=== PATIENT | female | born 1960 | race Caucasian/White ===

== ENCOUNTER 2020-12-29 06:08 | Outpatient (REF) | payer BC, SELFPAY ==
[2020-12-29 11:15] LABS: MANUAL DIFF FLAG NO
[2020-12-29 11:32] LABS: Basophils Percent Auto 0.5 % (0-2); Eosinophils Absolute Auto 0.1 X10*3/uL (0.0-0.4); Eosinophils Percent Auto 2.2 % (0-4); Hematocrit 40.9 % (37-47); Hemoglobin 13.6 g/dl (12.0-16.0); Imm Gran Abs Auto 0.03 X10*3/uL (0.00-0.03); Imm Gran Pct Auto 0.5 % (0.0-0.4); Lymphocytes Absolute Auto 2.5 X10*3/uL (1.2-4.9); Lymphocytes Percent Auto 38.5 % (20-40); Mean Corpuscular HGB Conc 33.3 g/dl (31.0-35.0); Mean Corpuscular Volume 96.2 fL (80-98); Mean Platelet Volume 10.8 fL (9.4-12.3); Monocytes Absolute Auto 0.6 X10*3/uL (0.1-1.2); Monocytes Percent Auto 8.9 % (2-11); Neutrophils Absolute Auto 3.2 X10*3/uL (2.0-8.3); Neutrophils Percent Auto 49.4 % (45-73); Platelet Count 249 X10*3/uL (160-400); Red Blood Count 4.25 X10*6/uL (4.20-5.50); Red Cell Distribution Width 12.7 % (11.0-16.0); White Blood Count 6.4 X10*3/uL (4.8-10.8)
[2020-12-29 11:33] LABS: Estimated Average Glucose 128 mg/dL; Hemoglobin A1c % 6.1 %
[2020-12-29 11:43] LABS: Alanine Aminotransferase 22 U/L (0-31); Albumin Level 4.4 g/dL (3.5-5.0); Alkaline Phosphatase 74 U/L (39-117); Anion Gap 12 (12-20); Aspartate Amino Transferase 16 U/L (5-31); Bilirubin Total 0.7 mg/dL (0.0-1.0); Blood Urea Nitrogen 17 mg/dL (9-16); Calcium 9.1 mg/dL (8.4-10.2); Carbon Dioxide 27 mmol/L (22-29); Chloride 106 mmol/L (96-108); Cholesterol 221 mg/dL; Estimated Glomerular Filt Rate > 60; Glucose Fasting 169 mg/dL (60-99); HDL Cholesterol 72 mg/dL; LDL Cholesterol Calculated 134 mg/dl; Potassium 4.5 mmol/L (3.3-5.1); Sodium 140 mmol/L (135-145); Total Protein 6.8 g/dL (6.5-8.0); Triglycerides 77 mg/dL
== END 2020-12-29 06:09 | disposition home or self-care (01) ==
LOC: HO.HMGCLDS 06:08
PROVIDERS: PCP Internal Medicine; Visit Provider Internal Medicine
DX: I10 Essential (primary) hypertension (principal); E78.9 Disorder of lipoprotein metabolism, unspecified; R73.01 Impaired fasting glucose; R49.0 Dysphonia; Z72.0 Tobacco use
CPT/HCPCS: 36415; 80053; 80061; 83036; 85025

== ENCOUNTER 2021-05-16 18:58 | Emergency (ER) | payer BC, SELFPAY ==
--- NOTE | ~2021-05-16 | XR_ITS ---
EXAMINATION: XR CHEST CLINICAL INFORMATION: Cough COMPARISON: None TECHNIQUE: Frontal view of the chest was obtained. FINDINGS: Lungs are mildly hyperexpanded. No consolidation, pneumothorax, or pleural effusion. Cardiac and mediastinal contours are normal. Osseous structures are unremarkable. Mild degenerative spondylosis in the thoracic spine. XR/XR chest 1V IMPRESSION: No acute pulmonary findings.
[2021-05-16 19:01] VITALS: BP 167/88; PULSE 95; RESP 18; TEMP 36.9; O2SAT 94; BMI 27.4
[2021-05-16 20:59] LABS: IDNOW Serial# 08D9AD1C
[2021-05-16 21:17] LABS: COVID-19 Test Negative (Negative)
[2021-05-16 21:45] VITALS: O2SAT 96
[2021-05-16 21:51] VITALS: BP 139/91; PULSE 85; RESP 18; TEMP 36.9; O2SAT 96
--- NOTE | 2021-05-16 22:43 | ED_ITS ---
HPI - URI/Sore Throat General Chief Complaint: Upper Respiratory Symptoms Stated Complaint: cough Time Seen by Provider: 05/16/21 22:43 Source: patient Mode of arrival: ambulatory History of Present Illness HPI Narrative: 60-year-old female, every day smoker, history of hypertension comes in with complaints of ongoing cough with associated pain on cough at the anterior chest wall but denies any fevers, chills, GI or symptoms. Patient states that she was seen at urgent care approximately 5 days ago and was given a Z-Long and inhaler at that time. Patient states that she has ?almost completed the Z-Long? but has not use the inhaler at all. Related Data Home Medications Medication Instructions Recorded Confirmed lorazepam 1 mg tablet 1 mg PO DAILY PRN 04/13/21 04/13/21 Previous Rx's Medication Instructions Recorded cetirizine 10 mg tablet 10 mg PO DAILY PRN #30 tab 02/02/21 simvastatin 20 mg tablet 20 mg PO DAILY 90 Days #90 tab 02/19/21 cholecalciferol (vitamin D3) 50 50 mcg PO DAILY 90 Days #90 cap 04/13/21 mcg (2,000 unit) capsule lisinopril 20 mg tablet 20 mg PO DAILY #90 tab 04/30/21 albuterol sulfate 90 mcg/actuation 1 inh INHALATION QID PRN #6.7 g 05/13/21 aerosol inhaler albuterol sulfate 90 mcg/actuation 1 inh INHALATION QID PRN #6.7 g 05/13/21 aerosol inhaler azithromycin 250 mg tablet See Rx Instructions PO .COMPLEX #6 05/13/21 tab azithromycin 250 mg tablet See Rx Instructions PO .COMPLEX #6 05/13/21 tab Allergies Allergy/AdvReac Type Severity Reaction Status Date / Time No Known Allergies Allergy Verified 05/13/21 08:16 Review of Systems Review of Systems: Pertinent positives and negatives as stated in HPI and 10 point review of systems is otherwise negative. [facility] Past Medical History Source: nursing notes reviewed Surgical History History of section History of foot surgery History of hysterectomy Family History Family History Father HTN (hypertension) Mother HTN (hypertension) Diabetes mellitus Depression Daughter HTN (hypertension) Son No problems noted. Sister No problems noted. Sister No problems noted. Sister No problems noted. Maternal Grandmother Unknown family medical history Maternal Grandfather Unknown family medical history Paternal Grandmother Unknown family medical history Other Substance use disorder Social History Social History Housing: House Patient Tobacco Use Status: Current someday Tobacco user Tobacco use type: Cigarette (1 pack per week ) Years Smoked: 30 Use of substances other than those prescribed or required for medical reasons: No Advance Directives: No Advance Directives Information Provided: No Patient : No Current occupational status: employed Physical Exam Vital Signs: Vital Signs: Last Vital Signs Temp 98.4 F 05/16/21 21:51 Pulse 85 05/16/21 21:51 Resp 18 05/16/21 21:51 BP 139/91 H 05/16/21 21:51 Pulse Ox 96 05/16/21 21:51 Body Mass Index 27.4 VITAL SIGNS: Reviewed. GENERAL: Well developed, well nourished, in no acute distress. HEAD: Normocephalic/atraumatic, EYES: PERRLA, EOMI EARS: Ext canals without abnormality, TMs non-bulging and non-erythematous NOSE: Nares patent bilateral OROPHARYNX: no oral lesions noted, posterior pharynx clear and non-erythematous without noted tonsillar enlargement/erythema/exudates NECK: Supple, no adenopathy LUNGS: Scattered rhonchi that clear with cough, good inspiratory effort and no expiratory wheeze noted. SpO2<96> CARDIOVASCULAR: Regular rate and rhythm without noted murmurs ABDOMEN: Soft, non-tender, non-distended with bowel sounds. SKIN: Inspection of the skin reveals no rashes NEUROLOGIC: Alert and oriented x 4. Strength and sensation to light touch were grossly intact x 4. Course Course Course Narrative: 60-year-old female with history and clinical presentation consistent with viral cough, bronchitis and review of all investigations negative for acute findings. All results discussed with patient at bedside as well as different interventions at home that she can implement. MDM - URI/Sore Throat Lab Data Labs: Lab Results 05/16/21 Range/Units 20:47 COVID-19 (ROGELIO) Negative (Negative) COVID-19 Clin Com See Note Discharge Plan Discharge Clinical Impression: Cough, Bronchitis Patient Disposition: Home, Self-Care Instructions: Acute Bronchitis (ED) Additional Instructions: 1. Resume all home medications as prescribed. 2. Recommend using your albuterol inhaler as prescribed for symptom relief. 3. Recommend increasing fluid hydration especially with water as well as using an [id number] guaifenesin based cough medication for additional symptom relief. 4. Recommend using a cool mist humidifier at the bedside for additional symptom relief. 5. Continue with smoking cessation and follow-up with your primary care provider in the next 2-3 days for re-evaluation and further outpatient management. 6. Also recommend pursuing repeat COVID-19 testing in 3-4 days. Return to the ER for acute worsening of your symptoms. Prescriptions: No Action simvastatin 20 mg tablet 20 mg PO DAILY 90 Days Qty: 90 RF: 0 lisinopril 20 mg tablet 20 mg PO DAILY Qty: 90 RF: 0 cetirizine 10 mg tablet 10 mg PO DAILY PRN (Reason: allergy symptoms) Qty: 30 RF: 0 lorazepam 1 mg tablet 1 mg PO DAILY PRNRF: 0 cholecalciferol (vitamin D3) 50 mcg (2,000 unit) capsule 50 mcg PO DAILY 90 Days Qty: 90 RF: 3 azithromycin 250 mg tablet See Rx Instructions PO .COMPLEX Qty: 6 RF: 0 albuterol sulfate 90 mcg/actuation HFA aerosol inhaler 1 inh inhalation QID PRN (Reason: shortness of breath or wheezing) Qty: 6.7 RF: 1 azithromycin 250 mg tablet See Rx Instructions PO .COMPLEX Qty: 6 RF: 0 albuterol sulfate 90 mcg/actuation HFA aerosol inhaler 1 inh inhalation QID PRN (Reason: shortness of breath or wheezing) Qty: 6.7 RF: 1 Referrals: Gemini Canas MD [Primary Care Provider] - 2 days
== END 2021-05-16 23:04 | disposition home or self-care (01) ==
PROVIDERS: Emergency Provider Student in an Organized Health Care Education/Training Program; PCP Internal Medicine
DX: J40 Bronchitis, not specified as acute or chronic (principal); R05 Cough; F17.210 Nicotine dependence, cigarettes, uncomplicated; I10 Essential (primary) hypertension; Z20.822 Contact with and (suspected) exposure to COVID-19; Z71.6 Tobacco abuse counseling; Z79.899 Other long term (current) drug therapy
CPT/HCPCS: 36415; 71045; 87635; 99284; 99285

== ENCOUNTER 2021-08-11 06:03 | Outpatient (REF) | payer BC, SELFPAY ==
[2021-08-11 12:05] LABS: Alanine Aminotransferase 20 U/L (0-31); Albumin Level 4.1 g/dL (3.5-5.0); Alkaline Phosphatase 70 U/L (39-117); Anion Gap 11 (12-20); Aspartate Amino Transferase 16 U/L (5-31); Bilirubin Total 0.3 mg/dL (0.0-1.0); Blood Urea Nitrogen 16 mg/dL (9-16); Carbon Dioxide 23 mmol/L (22-29); Chloride 107 mmol/L (96-108); Estimated Glomerular Filt Rate > 60; Glucose Random 180 mg/dL (60-115); Potassium 4.3 mmol/L (3.3-5.1); Sodium 137 mmol/L (135-145); Total Protein 6.3 g/dL (6.5-8.0)
[2021-08-17 15:11] LABS: Vitamin D 25-OH, D2 <4 ng/mL; Vitamin D 25-OH, D3 23 ng/mL; Vitamin D 25-OH, Total 23 ng/mL (30-100)
== END 2021-08-11 06:04 | disposition home or self-care (01) ==
LOC: HO.HMGCLDS 06:03
PROVIDERS: PCP Internal Medicine; Visit Provider Internal Medicine
DX: E55.9 Vitamin D deficiency, unspecified (principal); E78.9 Disorder of lipoprotein metabolism, unspecified; I10 Essential (primary) hypertension; Z72.0 Tobacco use
CPT/HCPCS: 36415; 80053; 82306

== ENCOUNTER 2021-12-28 06:34 | Outpatient (REF) | payer BC, SELFPAY ==
[2021-12-28 12:05] LABS: Estimated Average Glucose 134 mg/dL; Hemoglobin A1c % 6.3 %
[2021-12-28 12:16] LABS: Alanine Aminotransferase 25 U/L (0-31); Albumin Level 4.2 g/dL (3.5-5.0); Alkaline Phosphatase 73 U/L (39-117); Anion Gap 14 (12-20); Aspartate Amino Transferase 20 U/L (5-31); Bilirubin Total 0.2 mg/dL (0.0-1.0); Blood Urea Nitrogen 11 mg/dL (9-16); Calcium 9.5 mg/dL (8.4-10.2); Carbon Dioxide 23 mmol/L (22-29); Chloride 108 mmol/L (96-108); Estimated Glomerular Filt Rate > 60; Glucose Fasting 152 mg/dL (60-99); Potassium 4.5 mmol/L (3.3-5.1); Sodium 140 mmol/L (135-145); Total Protein 6.7 g/dL (6.5-8.0)
[2021-12-28 12:31] LABS: Creatinine Urine 94.95 mg/dL; Microalbum/Creatinine Ratio Ur 10.5 ug/mg cr
[2022-01-01 14:22] LABS: Vitamin D 25-OH, D2 <4 ng/mL; Vitamin D 25-OH, D3 25 ng/mL; Vitamin D 25-OH, Total 25 ng/mL (30-100)
== END 2021-12-28 06:35 | disposition home or self-care (01) ==
LOC: HO.HMGCLDS 06:34
PROVIDERS: Visit Provider Internal Medicine
DX: E11.9 Type 2 diabetes mellitus without complications (principal); E78.9 Disorder of lipoprotein metabolism, unspecified; I10 Essential (primary) hypertension
CPT/HCPCS: 36415; 80053; 82043; 82306; 83036

== ENCOUNTER → 2022-01-24 09:21 | Outpatient (BNVA) | payer BC, SELFPAY | PROVIDERS: PCP Internal Medicine; Visit Provider Advanced Practice Midwife | DX: Z13.89 Encounter for screening for other disorder (principal) ==

== ENCOUNTER 2022-05-03 06:03 | Outpatient (REF) | payer BC, SELFPAY ==
[2022-05-03 11:36] LABS: Estimated Average Glucose 128 mg/dL; Hemoglobin A1c % 6.1 %
[2022-05-03 11:41] LABS: Alanine Aminotransferase 24 U/L (0-31); Albumin Level 4.3 g/dL (3.5-5.0); Alkaline Phosphatase 77 U/L (39-117); Anion Gap 12 (12-20); Aspartate Amino Transferase 17 U/L (5-31); Bilirubin Total 0.6 mg/dL (0.0-1.0); Blood Urea Nitrogen 16 mg/dL (9-16); Calcium 9.5 mg/dL (8.4-10.2); Carbon Dioxide 26 mmol/L (22-29); Chloride 105 mmol/L (96-108); Cholesterol 209 mg/dL; Estimated Glomerular Filt Rate > 60; Glucose Fasting 164 mg/dL (60-99); HDL Cholesterol 69 mg/dL; LDL Cholesterol Calculated 126 mg/dl; Sodium 138 mmol/L (135-145); Total Protein 6.9 g/dL (6.5-8.0); Triglycerides 74 mg/dL
== END 2022-05-03 06:04 | disposition home or self-care (01) ==
LOC: HO.HMGCLDS 06:03
PROVIDERS: Visit Provider Internal Medicine
DX: I10 Essential (primary) hypertension (principal); E78.9 Disorder of lipoprotein metabolism, unspecified; E11.9 Type 2 diabetes mellitus without complications; R49.0 Dysphonia; D12.6 Benign neoplasm of colon, unspecified
CPT/HCPCS: 36415; 80053; 80061; 83036

== ENCOUNTER 2022-09-01 06:01 | Outpatient (REF) | payer BC, SELFPAY ==
[2022-09-01 12:02] LABS: TSH reflex Free T4 0.88 uIU/mL (0.32-4.0)
[2022-09-01 12:14] LABS: Alanine Aminotransferase 26 U/L (0-31); Albumin Level 4.3 g/dL (3.5-5.0); Alkaline Phosphatase 80 U/L (39-117); Anion Gap 14 (12-20); Aspartate Amino Transferase 19 U/L (5-31); Bilirubin Total 0.7 mg/dL (0.0-1.0); Blood Urea Nitrogen 19 mg/dL (9-16); Calcium 9.1 mg/dL (8.4-10.2); Carbon Dioxide 24 mmol/L (22-29); Chloride 105 mmol/L (96-108); Cholesterol 196 mg/dL; Estimated Glomerular Filt Rate > 60; Glucose Fasting 155 mg/dL (60-99); HDL Cholesterol 63 mg/dL; LDL Cholesterol Calculated 115 mg/dl; Potassium 3.9 mmol/L (3.3-5.1); Sodium 139 mmol/L (135-145); Total Protein 6.8 g/dL (6.5-8.0); Triglycerides 92 mg/dL
[2022-09-01 12:18] LABS: Creatinine Urine 111.11 mg/dL; Microalbum/Creatinine Ratio Ur 8.1 ug/mg cr
[2022-09-01 12:29] LABS: Estimated Average Glucose 134 mg/dL; Hemoglobin A1c % 6.3 %
== END 2022-09-01 06:02 | disposition home or self-care (01) ==
LOC: HO.HMGCLDS 06:01
PROVIDERS: PCP Internal Medicine; Visit Provider Internal Medicine
DX: E11.9 Type 2 diabetes mellitus without complications (principal); E55.9 Vitamin D deficiency, unspecified; E78.9 Disorder of lipoprotein metabolism, unspecified; F41.1 Generalized anxiety disorder; I10 Essential (primary) hypertension; R49.0 Dysphonia; Z72.0 Tobacco use
CPT/HCPCS: 36415; 80053; 80061; 82043; 83036; 84443

== ENCOUNTER 2022-11-07 08:10 | Outpatient (REF) | payer BC, SELFPAY ==
--- NOTE | ~2022-11-07 | MM_ITS ---
EXAMINATION: MM SCREENING DIGITAL BREAST TOMOSYNTHESIS, BILATERAL CLINICAL INFORMATION: Screening. Asymptomatic. The lifetime risk of breast cancer based on the Tyrer-Cuzick Model is 4%. COMPARISON: Mammography: 07/22/2019; outside mammography 08/31/2017, 08/22/2016, 08/08/2016 ([facility]) TECHNIQUE: Digital breast tomosynthesis is performed in both the craniocaudal and mediolateral oblique views along with computer-aided detection (CAD). Synthesized 2D images are generated from the tomosynthesis. FINDINGS: The breasts are heterogeneously dense, which may obscure small masses (ACR BI-RADS breast composition Category c). Breast tissue composition borders on average fibroglandular. Denser breast tissue composition is in the upper outer quadrant similar to prior studies. No developing density or architectural abnormality. No abnormal calcifications. The axilla and skin contours are unremarkable. No significant changes. MM/MM tomosynthesis screening BI IMPRESSION: No mammographic evidence of malignancy. ASSESSMENT: BI-RADS 1: Negative RECOMMENDATION: Routine annual mammography screening. This patient's information was entered into a reminder system with a target due date for their next mammogram.
== END 2022-11-07 08:11 | disposition home or self-care (01) ==
LOC: HO.MAMMO 08:10
PROVIDERS: PCP Internal Medicine; Visit Provider Internal Medicine
DX: Z12.31 Encounter for screening mammogram for malignant neoplasm of breast (principal)
CPT/HCPCS: 77063; 77067

== ENCOUNTER 2023-01-30 06:01 | Outpatient (REF) | payer BC, SELFPAY ==
[2023-01-30 11:32] LABS: MANUAL DIFF FLAG NO
[2023-01-30 11:43] LABS: Basophils Percent Auto 0.4 % (0-2); Eosinophils Absolute Auto 0.2 X10*3/uL (0.0-0.4); Eosinophils Percent Auto 2.9 % (0-4); Hemoglobin 13.5 g/dl (12.0-16.0); Imm Gran Abs Auto 0.02 X10*3/uL (0.00-0.03); Imm Gran Pct Auto 0.4 % (0.0-0.4); Lymphocytes Percent Auto 36.5 % (20-40); Mean Corpuscular HGB Conc 33.8 g/dl (31.0-35.0); Mean Corpuscular Hemoglobin 31.9 pg (27.0-33.0); Mean Corpuscular Volume 94.6 fL (80.0-98.0); Mean Platelet Volume 10.3 fL (9.4-12.3); Monocytes Absolute Auto 0.4 X10*3/uL (0.1-1.2); Monocytes Percent Auto 7.4 % (2-11); Neutrophils Absolute Auto 2.9 x10*3/uL (2.0-8.3); Neutrophils Percent Auto 52.4 % (45-73); Platelet Count 229 X10*3/uL (160-400); Red Blood Count 4.23 X10*6/uL (4.20-5.50); Red Cell Distribution Width 12.5 % (11.0-16.0); White Blood Count 5.5 X10*3/uL (4.8-10.8)
[2023-01-30 12:04] LABS: Alanine Aminotransferase 20 U/L (0-31); Albumin Level 4.1 g/dL (3.5-5.0); Alkaline Phosphatase 78 U/L (39-117); Anion Gap 12 (12-20); Aspartate Amino Transferase 15 U/L (5-31); Bilirubin Total 0.8 mg/dL (0.0-1.0); Blood Urea Nitrogen 15 mg/dL (9-16); Calcium 9.1 mg/dL (8.4-10.2); Carbon Dioxide 25 mmol/L (22-29); Chloride 108 mmol/L (96-108); Cholesterol 186 mg/dL; Estimated Glomerular Filt Rate > 60; Glucose Fasting 182 mg/dL (60-99); HDL Cholesterol 64 mg/dL; LDL Cholesterol Calculated 101 mg/dl; Sodium 141 mmol/L (135-145); Total Protein 6.3 g/dL (6.5-8.0); Triglycerides 107 mg/dL
[2023-01-30 12:19] LABS: Estimated Average Glucose 143 mg/dL; Hemoglobin A1c % 6.6 %
== END 2023-01-30 06:02 | disposition home or self-care (01) ==
LOC: HO.HMGCLDS 06:01
PROVIDERS: PCP Internal Medicine; Visit Provider Internal Medicine
DX: E11.9 Type 2 diabetes mellitus without complications (principal); E78.9 Disorder of lipoprotein metabolism, unspecified; F41.1 Generalized anxiety disorder; I10 Essential (primary) hypertension; Z72.0 Tobacco use
CPT/HCPCS: 36415; 80053; 80061; 83036; 85025

== ENCOUNTER 2023-06-08 06:06 | Outpatient (REF) | payer BC, SELFPAY ==
[2023-06-08 11:56] LABS: Alanine Aminotransferase 30 U/L (0-31); Albumin Level 4.1 g/dL (3.5-5.0); Alkaline Phosphatase 79 U/L (39-117); Anion Gap 10 (12-20); Aspartate Amino Transferase 22 U/L (5-31); Bilirubin Total 0.5 mg/dL (0.0-1.0); Blood Urea Nitrogen 15 mg/dL (9-16); Calcium 9.3 mg/dL (8.4-10.2); Carbon Dioxide 26 mmol/L (22-29); Chloride 106 mmol/L (96-108); Cholesterol 198 mg/dL (<200); Estimated Glomerular Filt Rate > 60; Glucose Fasting 184 mg/dL (60-99); HDL Cholesterol 61 mg/dL (>40); LDL Cholesterol Calculated 118 mg/dL (<100); Potassium 4.3 mmol/L (3.3-5.1); Sodium 138 mmol/L (135-145); Total Protein 6.8 g/dL (6.5-8.0); Triglycerides 98 mg/dL (<150)
[2023-06-08 12:00] LABS: Estimated Average Glucose 140 mg/dL; Hemoglobin A1c % 6.5 % (<6.0)
[2023-06-08 13:41] LABS: Creatinine Urine 82.33 mg/dL; Microalbum/Creatinine Ratio Ur 7.2 ug/mg cr (<30)
== END 2023-06-08 06:07 | disposition home or self-care (01) ==
LOC: HO.HMGCLDS 06:06
PROVIDERS: PCP Internal Medicine; Visit Provider Internal Medicine
DX: E11.9 Type 2 diabetes mellitus without complications (principal); I10 Essential (primary) hypertension; E78.9 Disorder of lipoprotein metabolism, unspecified; F41.1 Generalized anxiety disorder
CPT/HCPCS: 36415; 80053; 80061; 82043; 83036

== ENCOUNTER 2023-06-09 09:24 | Outpatient (AMB) | payer BC, SELFPAY ==
[2023-06-09 09:31] VITALS: BP 120/64; PULSE 96; O2SAT 98; BMI 27.4
--- NOTE | 2023-06-09 09:31 | A.OFFPC_ITS ---
Vital Signs 06/09/23 09:31 Height 5 ft 3 in Weight 154 lb 8 oz BMI 27.4 BP 120/64 Blood Pressure Location Rt brachial Position Sitting Pulse 96 Pulse Source Pulse Oximeter Pulse Oximetry (%) 98 Oxygen Delivery Method Room Air Intake Visit Reasons: 4 month follow up Allergies No Known Allergies Allergy (Verified 06/09/23 09:33) Medication List - Last Reconciled 06/09/23 by Gemini Canas MD cholecalciferol (vitamin D3) 50 mcg PO DAILY 90 days lisinopril 20 mg PO DAILY lorazepam 1 mg PO DAILY PRN sertraline 25 mg PO DAILY simvastatin 40 mg PO DAILY 90 days Tobacco use date assessed: 06/09/23 Fall risk assessment: No Falls in past year Last assessed Fall Risk: 06/09/23 Dental Screening Dental Screen Date: 06/09/23 Did you have a dental visit in the last 12 months?: Yes Did you have a dental problem in the last 6 months where you did not have access to dental care?: No Was dental information given to patient?: No HPI 4 month follow up HPI Details patient is a 62-year-old female came in today for her regular follow-up appointment Labs done recently reviewed her hemoglobin A1c is 6.5 patient is diet-controlled diabetic. 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 She is requesting Daley is vaccine her last Tdap was in 2014 we have provided a vaccine today she is soon to be a grandmother Lipid disorder:? Patient is on simvastatin 40 mg, tolerating medication no side effects ?hypertension:? Blood pressure is stable patient is on lisinopril 20 mg daily she is tolerating medication.? Lorazepam and sertraline is thru her Pych Colonoscopy was just done, by Dr. Jones, it showed tubular adenoma next colonoscopy will be in 2024 labs to be done before next visit in 4 M,?? ? PFSH Medical History High cholesterol Hypertension Surgical History History of section History of foot surgery History of hysterectomy Family History Father HTN (hypertension) Mother HTN (hypertension) Diabetes mellitus Depression Daughter HTN (hypertension) Son No problems noted. Sister No problems noted. Sister No problems noted. Sister No problems noted. Maternal Grandmother Unknown family medical history Maternal Grandfather Unknown family medical history Paternal Grandmother Unknown family medical history Other Substance use disorder Social History Housing: House Alcohol intake: current Alcohol intake frequency: a few times a week Patient Tobacco Use Status: Current someday Tobacco user Tobacco use type: Cigarette Cigarettes Per Day: 2 Years Smoked: 30 e-Cigarette/Vaping Use: Never Used service: No Current occupational status: employed Sexual orientation: Straight/Heterosexual Gender identity: Female Cognitive needs: No Hearing needs: No Vision needs: Yes Questionnaire PHQ-9 Over the last 2 weeks, how often have you been bothered by any of the following problems? 1. Little interest or pleasure in doing things: not at all 2. Feeling down, depressed, or hopeless: not at all 3. Trouble falling or staying asleep, or sleeping too much: not at all 4. Feeling tired or having little energy: not at all 5. Poor appetite or overeating: not at all 6. Feeling bad about yourself - or that you are a failure or have let yourself or your family down: not at all 7. Trouble concentrating on things, such as reading the newspaper or watching television: not at all 8. Moving or speaking so slowly that other people could have noticed. Or the opposite - being so fidgety or restless that you have been moving around a lot more than usual: not at all 9. Thoughts that you would be better off or of hurting yourself in some way: not at all Total score: 0 Depression Screening Interpretation: Negative 25555 - PHQ-9 Billing: Yes Source: Developed by Drs. Gerald Butler, Viola Miles, Kain Funez and colleagues, with an educational martir from [employer]. Thrive Questionnaire Date Thrive assessed: 06/09/23 I am a: Patient What is your living situation today?: I have a steady place to live Within the past 12 months, did the food you bought not last and you didn't have the money to get more?: Never true Within the past 12 months, did you worry whether your food would run out before you got money to buy more?: Never true Do you have trouble paying for medicines?: No Do you have trouble getting transportation to medical appointments?: No Do you have trouble paying your heating and electricity bill?: No Do you have trouble taking care of your child, family member or friend?: No Do you have trouble with day-to-day activities such as bathing, preparing meals, shopping, managing finances, etc.?: No Are you currently unemployed and looking for a job?: No AUDIT C Alcohol Use Questionnaire (AUDIT-C) 1. How often do you have a drink containing alcohol?: Monthly or less 2. How many drinks containing alcohol do you have on a typical day when you are drinking?: 1 or 2 3. How often do you have six or more drinks on one occasion?: Never Total Score: 1 Score Reviewed/Action Taken: Yes PAMELA-7 AMB Questionnaire PAMELA-7 Date PAMELA - 7 assessed: 06/09/23 Feeling nervous, anxious, or on edge: 0 = Not at all Not being able to stop or control worryin = Not at all Worrying too much about different things: 0 = Not at all Trouble relaxin = Not at all Being so restless that it is hard to sit still: 1 = Several days Becoming easily annoyed or irritable: 0 = Not at all Feeling afraid as if something awful might happen: 0 = Not at all Total PAMELA-7 score (0-4 normal; 5-9 mild; 10-14 moderate; 15-21 severe): 1 Source: Developed by Drs. Gerald Butler, Viola Miles, Kain Funez and colleagues, with an educational martir from [employer]. PAMELA-7 Assessment Billing PAMELA-7 Assessment Tool: PAMELA-7 Assessment 68995 Review of Systems Const Denies chills and Denies fever(s) ENT Denies epistaxis and Denies nasal discharge Card Denies chest pain Resp Denies chest congestion, Denies cough and Denies hemoptysis GI Denies diarrhea and Denies nausea Skin/Breast Denies rash Neuro Reports no additional complaints Psych Reports no additional complaints Endo Reports no additional complaints Physical exam (Primary Care) Vital Signs: Last Vital Signs Pulse 96 06/09/23 09:31 BP 120/64 06/09/23 09:31 Pulse Ox 98 06/09/23 09:31 Oxygen Delivery Method Room Air 06/09/23 09:31 BMI result Body Mass Index 27.4 Tobacco/Smoking Status: Tobacco use Status Tobacco use date assessed 06/09/23 06/09/23 09:33 Patient Tobacco Use Status Current someday Tobacco 06/09/23 09:33 Tobacco use type Cigarette 06/09/23 09:33 e-Cigarette/Vaping Use Never Used 06/09/23 09:33 PHQ-9: PHQ-9 Score PHQ-9: Total score 0 06/09/23 09:54 Depression Screening Interpretation: Negative Thrive Assessment: Date of Thrive Assessment Date Thrive assessed 06/09/23 06/09/23 09:54 Const General: cooperative, comfortable and no acute distress Orientation/consciousness: patient oriented x3 HENMT Head: Yes normocephalic Eyes General: appearance normal, both eyes and all related structures Neck Neck: Yes supple Neck images: 1. Side of pain with movement of head Resp Effort & Inspection: normal respiratory effort, no cough and no stridor Cardio Rhythm: regular rhythm Heart sounds: S1 normal heart sound present and S2 normal heart sound present Skin General skin exam: turgor normal Neuro General: patient oriented x3, tone normal and moves all extremities Extrem Right lower extremity: no edema Left lower extremity: no edema Immunizations Boostrix Tdap Performing Provider: Gemini Canas MD Administered by: Kevin Hall CMA on 06/09/23 09:54 Dose Route Admin Location Lot Number Expiration Date NDC Basting Puller 0.5 mL IM Left Deltoid [id number] 07/26/25 [id number] [employer] VIS Given Date VIS Provided VIS Publication Date 06/09/23 Single Vaccine 21 Eligibility Eligibility Date Funding Source Not VFC Eligible 06/09/23 Private Assessment and Plan Assessment & Plan (1) Hypertension, essential: Code(s): I10 - Essential (primary) hypertension (2) Lipid disorder: Code(s): E78.9 - Disorder of lipoprotein metabolism, unspecified (3) Tobacco abuse: Code(s): Z72.0 - Tobacco use (4) Hoarseness of voice: Code(s): R49.0 - Dysphonia (5) Diabetes type 2, controlled: Code(s): E11.9 - Type 2 diabetes mellitus without complications Qualifiers: Diabetes mellitus complication status: without complication Diabetes mellitus airways operations specialist insulin use: without airways operations specialist use Qualified Code(s): E11.9 - Type 2 diabetes mellitus without complications (6) Anxiety, generalized: Code(s): F41.1 - Generalized anxiety disorder (7) Strain of cervical portion of left trapezius muscle: Code(s): S16.1XXA - Strain of muscle, fascia and tendon at neck level, initial encounter (8) Immunizations incomplete: Code(s): Z28.39 - Other underimmunization status Plan patient is a 62-year-old female came in today for her regular follow-up appo intment Labs done recently reviewed her hemoglobin A1c is 6.5 patient is diet-controlled diabetic. 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 She is requesting Daley is vaccine her last Tdap was in 2015 we have provided a vaccine today she is soon to be a grandmother Lipid disorder:? Patient is on simvastatin 40 mg, tolerating medication no side effects ?hypertension:? Blood pressure is stable patient is on lisinopril 20 mg daily she is tolerating medication.? Lorazepam and sertraline is thru her Py Colonoscopy was just done, by Dr. Jones, it showed tubular adenoma next colonoscopy will be in 2024 labs to be done before next visit in 4 M,?? ? Orders: Orders Comprehensive Met. Panel 4 Months E11.9 - Type 2 diabetes mellitus without complications, E78.9 - Disorder of lipoprotein metabolism, unspecified, F41.1 - Generalized anxiety disorder, I10 - Essential (primary) hypertension, R49.0 - Dysphonia, Z72.0 - Tobacco use Hemoglobin A1c 4 Months E11.9 - Type 2 diabetes mellitus without complications, E78.9 - Disorder of lipoprotein metabolism, unspecified, F41.1 - Generalized anxiety disorder, I10 - Essential (primary) hypertension, R49.0 - Dysphonia, Z72.0 - Tobacco use Microalbumin, Random (w Creat) 4 Months E11.9 - Type 2 diabetes mellitus without complications, E78.9 - Disorder of lipoprotein metabolism, unspecified, F41.1 - Generalized anxiety disorder, I10 - Essential (primary) hypertension, R49.0 - Dysphonia, Z72.0 - Tobacco use TDaP Immunization Today Z23 - Encounter for immunization Medications: Refilled cholecalciferol (vitamin D3) 50 mcg PO DAILY 90 caps 3RF 90 days E55.9 - Vitamin D deficiency, unspecified lisinopril 20 mg PO DAILY 90 tabs 1RF simvastatin 40 mg PO DAILY 90 tabs 1RF 90 days Coding Level of Care Code Est Pt Level 4 (68764) Diagnoses Hypertension, essential I10 Lipid disorder E78.9 Tobacco abuse Z72.0 Hoarseness of voice R49.0 Diabetes type 2, controlled E11.9 Diabetes mellitus complication status: without complication Diabetes mellitus airways operations specialist insulin use: without airways operations specialist use Anxiety, generalized F41.1 Strain of cervical portion of left trapezius muscle S16.1XXA Immunizations incomplete Z28.39 Additional Codes PAMELA-7 Assessment Billing - PAMELA-7 Assessment Tool: PAMELA-7 Assessment 22440 ([id number])
== END 2023-06-09 10:05 | disposition home or self-care (01) ==
PROVIDERS: Visit Provider Internal Medicine
DX: I10 Essential (primary) hypertension (principal); E11.9 Type 2 diabetes mellitus without complications; E78.9 Disorder of lipoprotein metabolism, unspecified; Z23 Encounter for immunization; Z72.0 Tobacco use; R49.0 Dysphonia; F41.1 Generalized anxiety disorder; S16.1XXA Strain of muscle, fascia and tendon at neck level, initial encounter; Z28.39 Other underimmunization status
CPT/HCPCS: 90471; 90715; 99214

== ENCOUNTER 2023-10-17 06:31 | Outpatient (REF) | payer BC, SELFPAY ==
[2023-10-17 11:37] LABS: Estimated Average Glucose 151 mg/dL; Hemoglobin A1c % 6.9 % (<6.0)
[2023-10-17 11:54] LABS: Alanine Aminotransferase 51 U/L (0-31); Albumin Level 4.1 g/dL (3.5-5.0); Alkaline Phosphatase 88 U/L (39-117); Anion Gap 10 (12-20); Aspartate Amino Transferase 26 U/L (5-31); Bilirubin Total 0.3 mg/dL (0.0-1.0); Blood Urea Nitrogen 16 mg/dL (9-16); Calcium 9.2 mg/dL (8.4-10.2); Carbon Dioxide 27 mmol/L (22-29); Chloride 106 mmol/L (96-108); Estimated Glomerular Filt Rate > 60; Glucose Random 216 mg/dL (60-115); Potassium 4.2 mmol/L (3.3-5.1); Sodium 139 mmol/L (135-145); Total Protein 6.8 g/dL (6.5-8.0)
[2023-10-17 12:09] LABS: Creatinine Urine 113.87 mg/dL; Microalbum/Creatinine Ratio Ur 7.9 ug/mg cr (<30)
== END 2023-10-17 06:32 | disposition home or self-care (01) ==
LOC: HO.HMGCLDS 06:31
PROVIDERS: PCP Internal Medicine; Visit Provider Internal Medicine
DX: I10 Essential (primary) hypertension (principal); E78.9 Disorder of lipoprotein metabolism, unspecified; F41.1 Generalized anxiety disorder; E11.9 Type 2 diabetes mellitus without complications; R49.0 Dysphonia; Z72.0 Tobacco use
CPT/HCPCS: 36415; 80053; 82043; 82570; 83036

== ENCOUNTER 2023-10-18 08:13 | Outpatient (AMB) | payer BC, SELFPAY ==
[2023-10-18 08:20] VITALS: BP 140/82; PULSE 80; O2SAT 97; BMI 26.4
--- NOTE | 2023-10-18 08:20 | MHC.PC.OV ---
Vital Signs 10/18/23 08:20 Height 5 ft 3 in Weight 149 lb BMI 26.4 BP 140/82 H Blood Pressure Location Rt brachial Position Sitting Pulse 80 Pulse Source Pulse Oximeter Pulse Oximetry (%) 97 Oxygen Delivery Method Room Air Intake Visit Reasons: 4 month fu Allergies No Known Allergies Allergy (Verified 10/18/23 08:21) Medication List - Last Reconciled 10/18/23 by Gemini Canas MD cholecalciferol (vitamin D3) 50 mcg PO DAILY 90 days lisinopril 20 mg PO DAILY lorazepam 1 mg PO DAILY PRN sertraline 25 mg PO DAILY simvastatin 40 mg PO DAILY 90 days Tobacco use date assessed: 10/18/23 Fall risk assessment: No Falls in past year Last assessed Fall Risk: 10/18/23 Dental Screening Dental Screen Date: 10/18/23 Did you have a dental visit in the last 12 months?: Yes Did you have a dental problem in the last 6 months where you did not have access to dental care?: No Was dental information given to patient?: Patient has dentist HPI 4 month fu HPI Details Patient is a 63 year-old female came in today for her regular follow-up appointment Blood pressure is elevated today at 140/82 it was within normal limit last visit, we talked about consumption of salt Patient has been adding extra salt to her diet which she will stop Labs done recently reviewed her hemoglobin A1c is 6.9 patient is diet-controlled diabetic. , she tells me that she will do a more strict diet and we will go from there She will have a repeat labs done before her next visit in February. If her hemoglobin A1c crossed 7 I will start her on medication. Patient sees a psychiatrist for management of anxiety and sertraline and lorazepam is through them. She is under a lot of stress these days because of her 's health and her son is going through divorce. Lipid disorder:? Patient is on simvastatin 40 mg, tolerating medication no side effects Colonoscopy was just done, by Dr. Jones, it showed tubular adenoma next colonoscopy will be in 2024 labs to be done before next visit in 4 M,?? ? PFSH Medical History High cholesterol Hypertension Surgical History History of hysterectomy History of section History of foot surgery Family History Father HTN (hypertension) Mother HTN (hypertension) Diabetes mellitus Depression Daughter HTN (hypertension) Son No problems noted. Sister No problems noted. Sister No problems noted. Sister No problems noted. Maternal Grandmother Unknown family medical history Maternal Grandfather Unknown family medical history Paternal Grandmother Unknown family medical history Other Substance use disorder Social History Housing: House Alcohol intake: current Alcohol intake frequency: a few times a week Patient Tobacco Use Status: Current someday Tobacco user Tobacco use type: Cigarette Cigarettes Per Day: 2 Years Smoked: 30 e-Cigarette/Vaping Use: Never Used service: No Current occupational status: employed Sexual orientation: Straight/Heterosexual Gender identity: Female Cognitive needs: No Hearing needs: No Vision needs: Yes Questionnaire PHQ-9 Over the last 2 weeks, how often have you been bothered by any of the following problems? 1. Little interest or pleasure in doing things: not at all 2. Feeling down, depressed, or hopeless: not at all 3. Trouble falling or staying asleep, or sleeping too much: not at all 4. Feeling tired or having little energy: not at all 5. Poor appetite or overeating: not at all 6. Feeling bad about yourself - or that you are a failure or have let yourself or your family down: not at all 7. Trouble concentrating on things, such as reading the newspaper or watching television: not at all 8. Moving or speaking so slowly that other people could have noticed. Or the opposite - being so fidgety or restless that you have been moving around a lot more than usual: not at all 9. Thoughts that you would be better off or of hurting yourself in some way: not at all Total score: 0 Depression Screening Interpretation: Negative Depression Screening Done: Yes 11905 - PHQ-9 Billing: Yes Source: Developed by Drs. Gerald Butler, Viola Miles, Kain Funez and colleagues, with an educational martir from [employer]. Thrive Questionnaire Date Thrive assessed: 10/18/23 I am a: Patient What is your living situation today?: I have a steady place to live Within the past 12 months, did the food you bought not last and you didn't have the money to get more?: Never true Within the past 12 months, did you worry whether your food would run out before you got money to buy more?: Never true Do you have trouble paying for medicines?: No Do you have trouble getting transportation to medical appointments?: No Do you have trouble paying your heating and electricity bill?: No Do you have trouble taking care of your child, family member or friend?: No Do you have trouble with day-to-day activities such as bathing, preparing meals, shopping, managing finances, etc.?: No Are you currently unemployed and looking for a job?: No Are you interested in more education?: No Please select the resources that you would like help with: None Currently or been in a relationship where the following occur: no concerns reported AUDIT C Alcohol Use Questionnaire (AUDIT-C) 1. How often do you have a drink containing alcohol?: Monthly or less 2. How many drinks containing alcohol do you have on a typical day when you are drinking?: 1 or 2 3. How often do you have six or more drinks on one occasion?: Never Total Score: 1 Score Reviewed/Action Taken: No PAMELA-7 AMB Questionnaire PAMELA-7 Date PAMELA - 7 assessed: 10/18/23 Feeling nervous, anxious, or on edge: 2 = More than half the days Not being able to stop or control worryin = More than half the days Worrying too much about different things: 2 = More than half the days Trouble relaxin = Not at all Being so restless that it is hard to sit still: 0 = Not at all Becoming easily annoyed or irritable: 0 = Not at all Feeling afraid as if something awful might happen: 1 = Several days Total PAMELA-7 score (0-4 normal; 5-9 mild; 10-14 moderate; 15-21 severe): 7 Source: Developed by Drs. Gerald Butler, Viola Miles, Kain Funez and colleagues, with an educational martir from [employer]. PAMELA-7 Assessment Billing PAMELA-7 Assessment Tool: PAMELA-7 Assessment 97887 Review of Systems Const Denies chills and Denies fever(s) ENT Denies epistaxis and Denies nasal discharge Card Denies chest pain Resp Denies chest congestion, Denies cough and Denies hemoptysis GI Denies diarrhea and Denies nausea Skin/Breast Denies rash Neuro Reports no additional complaints Psych Reports no additional complaints Endo Reports no additional complaints Physical exam (Primary Care) Vital Signs: Last Vital Signs Pulse 80 10/18/23 08:20 BP 140/82 H 10/18/23 08:20 Pulse Ox 97 10/18/23 08:20 Oxygen Delivery Method Room Air 10/18/23 08:20 BMI result Body Mass Index 26.4 Tobacco/Smoking Status: Tobacco use Status Tobacco use date assessed 10/18/23 10/18/23 08:22 Patient Tobacco Use Status Current someday Tobacco 10/18/23 08:22 Tobacco use type Cigarette 10/18/23 08:22 e-Cigarette/Vaping Use Never Used 10/18/23 08:22 PHQ-9: PHQ-9 Score PHQ-9: Total score 0 10/18/23 08:53 Depression Screening Interpretation: Negative Thrive Assessment: Date of Thrive Assessment Date Thrive assessed 10/18/23 10/18/23 08:49 Currently or been in a relationship where the following occur: no concerns reported Const General: cooperative, comfortable and no acute distress Orientation/consciousness: patient oriented x3 HENMT Head: Yes normocephalic Eyes General: appearance normal, both eyes and all related structures Neck Neck: Yes supple Resp Effort & Inspection: normal respiratory effort, no cough and no stridor Cardio Rhythm: regular rhythm Heart sounds: S1 normal heart sound present and S2 normal heart sound present Skin General skin exam: turgor normal Neuro General: patient oriented x3, tone normal and moves all extremities Extrem Right lower extremity: no edema Left lower extremity: no edema Assessment and Plan Assessment & Plan (1) Hypertension, essential: Code(s): I10 - Essential (primary) hypertension (2) Lipid disorder: Code(s): E78.9 - Disorder of lipoprotein metabolism, unspecified (3) Tobacco abuse: Code(s): Z72.0 - Tobacco use (4) Hoarseness of voice: Code(s): R49.0 - Dysphonia (5) Diabetes type 2, controlled: Code(s): E11.9 - Type 2 diabetes mellitus without complications Qualifiers: Diabetes mellitus complication status: without complication Diabetes mellitus nursing home admissions director insulin use: without nursing home admissions director use Qualified Code(s): E11.9 - Type 2 diabetes mellitus without complications (6) Anxiety, generalized: Code(s): F41.1 - Generalized anxiety disorder (7) Major depression, recurrent: Code(s): F33.9 - Major depressive disorder, recurrent, unspecified Qualifiers: Active/Remission status: currently active Major depression episode severity: mild Qualified Code(s): F33.0 - Major depressive disorder, recurrent, mild (8) Snoring: Code(s): R06.83 - Snoring (9) Daytime somnolence: Code(s): R40.0 - Somnolence Plan Patient is a 63 year-old female came in today for her regular follow-up appointment Blood pressure is elevated today at 140/82 it was within normal limit last visit, we talked about consumption of salt Patient has been adding extra salt to her diet which she will stop Labs done recently reviewed her hemoglobin A1c is 6.9 patient is diet-controlled diabetic. , she tells me that she will do a more strict diet and we will go from there She will have a repeat labs done before her next visit in February. If her hemoglobin A1c crossed 7 I will start her on medication. Patient sees a psychiatrist for management of anxiety and sertraline and lorazepam is through them. She is under a lot of stress these days because of her 's health and her son is going through divorce. Lipid disorder:? Patient is on simvastatin 40 mg, tolerating medication no side effects Colonoscopy was just done, by Dr. Jones, it showed tubular adenoma next colonoscopy will be in 2024 Patient have chronic hoarseness of voice most likely secondary to smoking. Complaining of daytime somnolence and also tells me that she snores at night, have ordered a home sleep study for the patient labs to be done before next visit in 4 M,?? ? Orders: Orders Hemoglobin A1c Today E11.9 - Type 2 diabetes mellitus without complications, E78.9 - Disorder of lipoprotein metabolism, unspecified, F33.9 - Major depressive disorder, recurrent, unspecified, F41.1 - Generalized anxiety disorder, I10 - Essential (primary) hypertension, R49.0 - Dysphonia, Z72.0 - Tobacco use Complete Blood Count Auto Diff Today E11.9 - Type 2 diabetes mellitus without complications, E78.9 - Disorder of lipoprotein metabolism, unspecified, F33.9 - Major depressive disorder, recurrent, unspecified, F41.1 - Generalized anxiety disorder, I10 - Essential (primary) hypertension, R49.0 - Dysphonia, Z72.0 - Tobacco use Comprehensive [place]. Panel Fast Today E11.9 - Type 2 diabetes mellitus without complications, E78.9 - Disorder of lipoprotein metabolism, unspecified, F33.9 - Major depressive disorder, recurrent, unspecified, F41.1 - Generalized anxiety disorder, I10 - Essential (primary) hypertension, R49.0 - Dysphonia, Z72.0 - Tobacco use RT home sleep study Today R06.83 - Snoring, R40.0 - Somnolence Microalbumin, Random (w Creat) Today E11.9 - Type 2 diabetes mellitus without complications, E78.9 - Disorder of lipoprotein metabolism, unspecified, F33.9 - Major depressive disorder, recurrent, unspecified, F41.1 - Generalized anxiety disorder, I10 - Essential (primary) hypertension, R49.0 - Dysphonia, Z72.0 - Tobacco use Lipid Panel Today E11.9 - Type 2 diabetes mellitus without complications, E78.9 - Disorder of lipoprotein metabolism, unspecified, F33.9 - Major depressive disorder, recurrent, unspecified, F41.1 - Generalized anxiety disorder, I10 - Essential (primary) hypertension, R49.0 - Dysphonia, Z72.0 - Tobacco use Coding Level of Care Code Est Pt Level 4 (56161) Diagnoses Hypertension, essential I10 Lipid disorder E78.9 Tobacco abuse Z72.0 Hoarseness of voice R49.0 Controlled type 2 diabetes mellitus without complication, without long-term current use of insulin E11.9 Diabetes mellitus complication status: without complication Diabetes mellitus fdc insulin use: without fdc use Anxiety, generalized F41.1 Mild episode of recurrent major depressive disorder F33.0 Active/Remission status: currently active Major depression episode severity: mild Snoring R06.83 Daytime somnolence R40.0 Additional Codes PAMELA-7 Assessment Billing - PAMELA-7 Assessment Tool: PAMELA-7 Assessment 44511 ([id number])
== END 2023-10-18 10:12 | disposition home or self-care (01) ==
PROVIDERS: PCP Internal Medicine; Visit Provider Internal Medicine
DX: I10 Essential (primary) hypertension (principal); E11.9 Type 2 diabetes mellitus without complications; F33.0 Major depressive disorder, recurrent, mild; E78.9 Disorder of lipoprotein metabolism, unspecified; Z72.0 Tobacco use; R49.0 Dysphonia; F41.1 Generalized anxiety disorder; R06.83 Snoring; R40.0 Somnolence
CPT/HCPCS: 99214

== ENCOUNTER 2023-11-13 07:41 | Outpatient (REF) | payer BC, SELFPAY | END 2023-11-13 07:42 | disposition home or self-care (01) | LOC: HO.MAMMO 07:41 | PROVIDERS: PCP Internal Medicine; Visit Provider Internal Medicine | DX: Z12.31 Encounter for screening mammogram for malignant neoplasm of breast (principal) | CPT/HCPCS: 77063; 77067 ==

== ENCOUNTER → 2023-11-13 08:00 | Outpatient (BNV) | payer BC, SELFPAY | PROVIDERS: PCP Internal Medicine; Visit Provider Radiology Diagnostic Radiology | DX: Z12.31 Encounter for screening mammogram for malignant neoplasm of breast (principal) | CPT/HCPCS: 77063; 77067 ==

== ENCOUNTER 2024-03-12 08:02 | Outpatient (AMB) | payer BC, SELFPAY ==
--- NOTE | 2024-03-12 08:15 | MHC.OFFWIV ---
Intake Vital Signs 03/12/24 08:16 Height 5 ft 3 in BP 122/66 Blood Pressure Location Rt brachial Position Sitting Pulse 76 Pulse Source Pulse Oximeter Temp 98.0 F Temp Source Oral Pulse Oximetry (%) 98 Intake Visit Reasons: EST/ left leg pain (lobby) Intake Note: pt is here for left leg pain Patient Tobacco Use Status: Current someday Tobacco user Allergies No Known Allergies Allergy (Verified 03/12/24 08:50) Medication List - Last Reconciled 03/12/24 by AYUSH Antonio cholecalciferol (vitamin D3) 50 mcg PO DAILY 90 days lisinopril 20 mg PO DAILY lorazepam 1 mg PO DAILY PRN meloxicam 15 mg PO DAILY prednisone 20 mg PO BID sertraline 25 mg PO DAILY simvastatin 40 mg PO DAILY 90 days HPI HPI Comments History of Present Illness Details Patient is a 63-year-old female in today for a sick visit. Patient reports left-sided hip pain that radiates down to her knee. Reports history of the same. Believes this was exacerbated by long car ride. Denies any trauma to the area. Denies any tingling or numbness. Has not utilized any medication today for relief. Has intermittently used Advil which gave mild relief. Will obtain x-ray in office. Patient has full range of motion. No tingling or numbness. No saddle numbness. [facility] Medical History High cholesterol Hypertension Surgical History History of hysterectomy History of section History of foot surgery Family History Father HTN (hypertension) Mother HTN (hypertension) Diabetes mellitus Depression Daughter HTN (hypertension) Son No problems noted. Sister No problems noted. Sister No problems noted. Sister No problems noted. Maternal Grandmother Unknown family medical history Maternal Grandfather Unknown family medical history Paternal Grandmother Unknown family medical history Other Substance use disorder Social History Housing: House Alcohol intake: current Alcohol intake frequency: a few times a week Patient Tobacco Use Status: Current someday Tobacco user Tobacco use type: Cigarette Cigarettes Per Day: 2 Years Smoked: 30 e-Cigarette/Vaping Use: Never Used service: No Current occupational status: employed Sexual orientation: Straight/Heterosexual Gender identity: Female Cognitive needs: No Hearing needs: No Vision needs: Yes Review of Systems Const All systems reviewed & are unremarkable except as noted in HPI and below Denies chills and Denies fever(s) Card Denies chest pain and Denies dyspnea Resp Denies dyspnea GI Denies diarrhea, Denies nausea and Denies vomiting Musc Reports arthralgias (left si pain), Denies numbness, Reports radiating pain into limb (left side) and Denies tingling Neuro Denies numbness and Denies tingling Physical Exam Vital Signs: Last Vital Signs Temp 98.0 F 03/12/24 08:16 Pulse 76 03/12/24 08:16 BP 122/66 03/12/24 08:16 Pulse Ox 98 03/12/24 08:16 Vital signs reviewed stable. Const Other: Appearance: Alert.? Oriented X3.? No acute distress.? Head: Normocephalic, Neck: Normal inspection.? Neck supple.? Respiratory: No respiratory distress.? Skin: Skin warm and dry.? Normal skin color.? Normal skin turgor.? Extremities: No lower extremity edema.?5/5 strength to bilateral upper and lower extremities Back: No midline tenderness, no C-spine tenderness, full range of motion, no CVA tenderness bilaterally. + left SI joint tenderness. Neuro: Oriented X 3.? No motor deficit.? No sensory deficit Assessment & Plan Assessment & Plan (1) SI (sacroiliac) pain: Comment: left sided SI pain with radiculopathy. Will give patient meloxicam and prednisone. Patient has been educated the side effects of these medications Patient has been educated to rest the affected joint. Limit movements that exacerbate the pain. Patient has been explained that long-term care often involve physical therapy Code(s): M53.3 - Sacrococcygeal disorders, not elsewhere classified Plan: Will follow-up with x-ray results Plan Take your medications as prescribed. If you were prescribed antibiotics today, it is important that you take your medication to their entirety, do not skip any doses, do not finish them early. Follow-up with your primary care provider this week. Return to the emergency department with new or worsening symptoms. Such as fevers, chills, chest pain, shortness of breath, nausea, vomiting, dizziness, headache, vision changes, lethargy In case of emergency call 911 Orders: Orders XR sacroiliac joint 1-2V Today M53.3 - Sacrococcygeal disorders, not elsewhere classified Medications: New prednisone 20 mg PO BID 10 tabs 0RF meloxicam 15 mg PO DAILY 14 tabs 0RF Coding Level of Care Code Est Pt Level 3 (81979) Diagnoses SI (sacroiliac) pain M53.3 Time Spent (min) 28
[2024-03-12 08:16] VITALS: BP 122/66; PULSE 76; TEMP 36.7; O2SAT 98
== END 2024-03-12 08:53 | disposition home or self-care (01) ==
PROVIDERS: PCP Internal Medicine; Visit Provider Nurse Practitioner Primary Care
DX: M53.3 Sacrococcygeal disorders, not elsewhere classified (principal)
CPT/HCPCS: 99213

== ENCOUNTER 2024-03-12 08:29 | Outpatient (REF) | payer BC, SELFPAY ==
--- NOTE | ~2024-03-12 | XR_ITS ---
EXAMINATION: XR SACROILIAC JOINTS CLINICAL INFORMATION: Sacrococcygeal disorders not otherwise classified. COMPARISON: None available. TECHNIQUE: 3 views of the sacroiliac joints FINDINGS: Degenerative changes in the imaged lower lumbar spine. Moderate degenerative changes in the bilateral sacroiliac joints with joint space narrowing and hypertrophic change, left greater than right. 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
[2024-03-12 10:22] LABS: MANUAL DIFF FLAG NO
[2024-03-12 10:31] LABS: Basophils Percent Auto 0.5 % (0-2); Eosinophils Absolute Auto 0.1 X10*3/uL (0.0-0.4); Eosinophils Percent Auto 1.1 % (0-4); Hematocrit 40.6 % (37.0-47.0); Hemoglobin 14.2 g/dl (12.0-16.0); Imm Gran Abs Auto 0.04 X10*3/uL (0.00-0.03); Imm Gran Pct Auto 0.7 % (0.0-0.4); Lymphocytes Absolute Auto 1.6 X10*3/uL (1.2-4.9); Lymphocytes Percent Auto 29.1 % (20-40); Mean Corpuscular Hemoglobin 32.3 pg (27.0-33.0); Mean Corpuscular Volume 92.5 fL (80.0-98.0); Mean Platelet Volume 10.3 fL (9.4-12.3); Monocytes Absolute Auto 0.5 X10*3/uL (0.1-1.2); Neutrophils Absolute Auto 3.4 x10*3/uL (2.0-8.3); Neutrophils Percent Auto 60.6 % (45-73); Platelet Count 241 X10*3/uL (160-400); Red Blood Count 4.39 X10*6/uL (4.20-5.50); Red Cell Distribution Width 12.4 % (11.0-16.0); White Blood Count 5.6 X10*3/uL (4.8-10.8)
[2024-03-12 10:42] LABS: Estimated Average Glucose 166 mg/dL; Hemoglobin A1c % 7.4 % (<6.0)
[2024-03-12 10:56] LABS: Alanine Aminotransferase 29 U/L (0-31); Albumin Level 4.3 g/dL (3.5-5.0); Alkaline Phosphatase 88 U/L (39-117); Anion Gap 14 (12-20); Aspartate Amino Transferase 18 U/L (5-31); Bilirubin Total 0.6 mg/dL (0.0-1.0); Blood Urea Nitrogen 15 mg/dL (9-16); Calcium 9.8 mg/dL (8.4-10.2); Carbon Dioxide 23 mmol/L (22-29); Chloride 104 mmol/L (96-108); Cholesterol 204 mg/dL (<200); Estimated Glomerular Filt Rate > 60; Glucose Fasting 230 mg/dL (60-99); HDL Cholesterol 67 mg/dL (>40); LDL Cholesterol Calculated 117 mg/dL (<100); Sodium 137 mmol/L (135-145); Total Protein 7.1 g/dL (6.5-8.0); Triglycerides 102 mg/dL (<150)
[2024-03-12 11:03] LABS: Creatinine Urine 91.59 mg/dL; Microalbum/Creatinine Ratio Ur 7.6 ug/mg cr (<30)
== END 2024-03-12 08:30 | disposition home or self-care (01) ==
LOC: HO.HMGCX 08:29
PROVIDERS: PCP Internal Medicine; Referring Provider Internal Medicine; Visit Provider Nurse Practitioner Primary Care
DX: M53.3 Sacrococcygeal disorders, not elsewhere classified (principal); E11.9 Type 2 diabetes mellitus without complications; F41.1 Generalized anxiety disorder; Z72.0 Tobacco use; R49.0 Dysphonia; E78.9 Disorder of lipoprotein metabolism, unspecified; I10 Essential (primary) hypertension; F33.9 Major depressive disorder, recurrent, unspecified
CPT/HCPCS: 36415; 72200; 80053; 80061; 82043; 82570; 83036; 85025

== ENCOUNTER 2024-03-15 08:06 | Outpatient (AMB) | payer BC, SELFPAY ==
[2024-03-15 08:10] VITALS: BP 126/74; PULSE 100; O2SAT 95; BMI 24.8
--- NOTE | 2024-03-15 08:10 | A.OFFPC_ITS ---
Vital Signs 03/15/24 08:10 Height 5 ft 3 in Weight 140 lb 4 oz BMI 24.8 BP 126/74 Blood Pressure Location Rt brachial Position Sitting Pulse 100 Pulse Source Pulse Oximeter Pulse Oximetry (%) 95 Oxygen Delivery Method Room Air Intake Visit Reasons: Follow up R/S from 02/15 Allergies No Known Allergies Allergy (Verified 03/15/24 08:12) Medication List - Last Reconciled 03/15/24 by Gemini Canas MD cholecalciferol (vitamin D3) 50 mcg PO DAILY 90 days lisinopril 20 mg PO DAILY lorazepam 1 mg PO DAILY PRN prednisone 20 mg PO BID sertraline 25 mg PO DAILY simvastatin 40 mg PO DAILY 90 days Tobacco use date assessed: 03/15/24 Fall risk assessment: No Falls in past year Last assessed Fall Risk: 03/15/24 Dental Screening Dental Screen Date: 03/15/24 Did you have a dental visit in the last 12 months?: Yes Did you have a dental problem in the last 6 months where you did not have access to dental care?: No Was dental information given to patient?: Patient has dentist HPI Follow up R/S from 02/15 HPI Details Patient is a 63 year-old female came in today for her regular follow-up appointment Blood pressure is well-controlled today at 01:26 74 Patient has lost 9 lb since October She is also working on her diet and trying to cut down on smoking Recent labs showed hemoglobin A1c of 7.4%. Patient sees a psychiatrist for management of anxiety and sertraline and lorazepam is through them. Lipid disorder:? Patient is on simvastatin 40 mg, tolerating medication no side effects Colonoscopy was just done, by Dr. Jones, it showed tubular adenoma next colonoscopy will be in 2024 Patient have chronic hoarseness of voice most likely secondary to smoking. She complained of daytime somnolence and snoring last visit I ordered sleep study which patient forgot to schedule. Number was provided again today Patient has appointment in June for physical exam?? ? FORMERLY [facility], [facility] Medical History High cholesterol Hypertension Surgical History History of hysterectomy History of section History of foot surgery Family History Father HTN (hypertension) Mother HTN (hypertension) Diabetes mellitus Depression Daughter HTN (hypertension) Son No problems noted. Sister No problems noted. Sister No problems noted. Sister No problems noted. Maternal Grandmother Unknown family medical history Maternal Grandfather Unknown family medical history Paternal Grandmother Unknown family medical history Other Substance use disorder Social History Housing: House Alcohol intake: current Alcohol intake frequency: a few times a week Patient Tobacco Use Status: Current someday Tobacco user Tobacco use type: Cigarette Cigarettes Per Day: 2 Years Smoked: 30 e-Cigarette/Vaping Use: Never Used service: No Current occupational status: employed Sexual orientation: Straight/Heterosexual Gender identity: Female Cognitive needs: No Hearing needs: No Vision needs: Yes Questionnaire PHQ-9 Over the last 2 weeks, how often have you been bothered by any of the following problems? 1. Little interest or pleasure in doing things: not at all 2. Feeling down, depressed, or hopeless: not at all 3. Trouble falling or staying asleep, or sleeping too much: not at all 4. Feeling tired or having little energy: not at all 5. Poor appetite or overeating: not at all 6. Feeling bad about yourself - or that you are a failure or have let yourself or your family down: not at all 7. Trouble concentrating on things, such as reading the newspaper or watching television: not at all 8. Moving or speaking so slowly that other people could have noticed. Or the opposite - being so fidgety or restless that you have been moving around a lot more than usual: not at all 9. Thoughts that you would be better off or of hurting yourself in some way: not at all Total score: 0 Depression Screening Interpretation: Negative Depression Screening Done: Yes 41314 - PHQ-9 Billing: Yes Source: Developed by Drs. Gerald Butler, iVola Miles, Kain Funez and colleagues, with an educational martir from [employer]. Thrive Questionnaire Date Thrive assessed: 10/18/23 AUDIT C Alcohol Use Questionnaire (AUDIT-C) 1. How often do you have a drink containing alcohol?: Monthly or less 2. How many drinks containing alcohol do you have on a typical day when you are drinking?: 1 or 2 3. How often do you have six or more drinks on one occasion?: Never Total Score: 1 Score Reviewed/Action Taken: Yes PAMELA-7 AMB Questionnaire PAMELA-7 Date PAMELA - 7 assessed: 10/18/23 Source: Developed by Drs. Gerald Butler, Viola Miles, Kain Funez and colleagues, with an educational martir from [employer]. Review of Systems Const Denies chills and Denies fever(s) ENT Denies epistaxis and Denies nasal discharge Card Denies chest pain Resp Denies chest congestion, Denies cough and Denies hemoptysis GI Denies diarrhea and Denies nausea Skin/Breast Denies rash Neuro Reports no additional complaints Psych Reports no additional complaints Endo Reports no additional complaints Physical exam (Primary Care) Vital Signs: Last Vital Signs Pulse 100 03/15/24 08:10 BP 126/74 03/15/24 08:10 Pulse Ox 95 03/15/24 08:10 Oxygen Delivery Method Room Air 03/15/24 08:10 BMI result Body Mass Index 24.8 Tobacco/Smoking Status: Tobacco use Status Tobacco use date assessed 03/15/24 03/15/24 08:12 Patient Tobacco Use Status Current someday Tobacco 03/15/24 08:12 Tobacco use type Cigarette 03/15/24 08:12 e-Cigarette/Vaping Use Never Used 03/15/24 08:12 Depression Screening Interpretation: Negative Thrive Assessment: Date of Thrive Assessment Date Thrive assessed 10/18/23 03/15/24 08:12 Const General: cooperative, comfortable and no acute distress Orientation/consciousness: patient oriented x3 HENWA Head: Yes normocephalic Eyes General: appearance normal, both eyes and all related structures Neck Neck: Yes supple Resp Effort & Inspection: normal respiratory effort, no cough and no stridor Cardio Rhythm: regular rhythm Heart sounds: S1 normal heart sound present and S2 normal heart sound present Skin General skin exam: turgor normal Neuro General: patient oriented x3, tone normal and moves all extremities Extrem Right lower extremity: no edema Left lower extremity: no edema Assessment and Plan Assessment & Plan (1) Diabetes type 2, controlled: Code(s): E11.9 - Type 2 diabetes mellitus without complications Qualifiers: Diabetes mellitus joint terminal attack controller insulin use: without alf use Diabetes mellitus complication status: without complication Qualified Code(s): E11.9 - Type 2 diabetes mellitus without complications (2) Hypertension, essential: Code(s): I10 - Essential (primary) hypertension (3) Lipid disorder: Code(s): E78.9 - Disorder of lipoprotein metabolism, unspecified (4) Tobacco abuse: Code(s): Z72.0 - Tobacco use (5) Hoarseness of voice: Code(s): R49.0 - Dysphonia (6) Anxiety, generalized: Code(s): F41.1 - Generalized anxiety disorder (7) Major depression, recurrent: Code(s): F33.9 - Major depressive disorder, recurrent, unspecified Qualifiers: Active/Remission status: currently active Major depression episode severity: mild Qualified Code(s): F33.0 - Major depressive disorder, recurrent, mild Plan Patient is a 63 year-old female came in today for her regular follow-up appointment Blood pressure is well-controlled today at 01:26 74 Patient has lost 9 lb since October She is also working on her diet and trying to cut down on smoking Recent labs showed hemoglobin A1c of 7.4%. Patient sees a psychiatrist for management of anxiety and sertraline and liang zepam is through them. Lipid disorder:? Patient is on simvastatin 40 mg, tolerating medication no side effects Colonoscopy was just done, by Dr. Jones, it showed tubular adenoma next colonoscopy will be in 2024 Patient have chronic hoarseness of voice most likely secondary to smoking. She complained of daytime somnolence and snoring last visit I ordered sleep study which patient forgot to schedule. Number was provided again today Patient has appointment in June for physical exam?? ? Orders: Orders Comprehensive Met. Panel 3 Months E11.9 - Type 2 diabetes mellitus without complications, E78.9 - Disorder of lipoprotein metabolism, unspecified, I10 - Essential (primary) hypertension Hemoglobin A1c 3 Months E11.9 - Type 2 diabetes mellitus without complications, E78.9 - Disorder of lipoprotein metabolism, unspecified, I10 - Essential (primary) hypertension Coding Level of Care Code Est Pt Level 4 (88159) Diagnoses Controlled type 2 diabetes mellitus without complication, without long-term current use of insulin E11.9 Diabetes mellitus alf insulin use: without joint terminal attack controller use Diabetes mellitus complication status: without complication Hypertension, essential I10 Lipid disorder E78.9 Tobacco abuse Z72.0 Hoarseness of voice R49.0 Anxiety, generalized F41.1 Mild episode of recurrent major depressive disorder F33.0 Active/Remission status: currently active Major depression episode severity: mild
== END 2024-03-15 08:59 | disposition home or self-care (01) ==
PROVIDERS: PCP Internal Medicine; Visit Provider Internal Medicine
DX: E11.9 Type 2 diabetes mellitus without complications (principal); F33.0 Major depressive disorder, recurrent, mild; I10 Essential (primary) hypertension; E78.9 Disorder of lipoprotein metabolism, unspecified; Z72.0 Tobacco use; R49.0 Dysphonia; F41.1 Generalized anxiety disorder
CPT/HCPCS: 99214

== ENCOUNTER 2024-06-14 07:59 | Outpatient (AMB) | payer BC, SELFPAY ==
[2024-06-14 08:05] VITALS: BP 120/78; PULSE 68; TEMP 36.6; O2SAT 98; BMI 25.9
--- NOTE | 2024-06-14 08:05 | AM.OFFWIN_ITS ---
Intake Vital Signs 06/14/24 08:05 Height 5 ft 3 in Weight 146 lb BMI 25.9 BP 120/78 Blood Pressure Location Rt brachial Position Sitting Pulse 68 Pulse Source Pulse Oximeter Temp 97.9 F Temp Source Oral Pulse Oximetry (%) 98 Oxygen Delivery Method Room Air Intake Visit Reasons: EP- Sinus congestion Intake Note: Patient here for possible sinus infection which has been present for about 9 days. Patient Tobacco Use Status: Current someday Tobacco user Allergies No Known Allergies Allergy (Verified 06/14/24 08:08) Do you need a note to return to daycare/school/sports/work: No HPI HPI Comments History of Present Illness Details 63 y/o female patient who presents to [facility] walk in clinic with c/o cough, chest tightness, wheezing and sinus pressure for few days now. Home test negative for COVID. Denies fevers, chills, nausea or vomiting. PFSH Medical History High cholesterol Hypertension Surgical History History of hysterectomy History of section History of foot surgery Family History Father HTN (hypertension) Mother HTN (hypertension) Diabetes mellitus Depression Daughter HTN (hypertension) Son No problems noted. Sister No problems noted. Sister No problems noted. Sister No problems noted. Maternal Grandmother Unknown family medical history Maternal Grandfather Unknown family medical history Paternal Grandmother Unknown family medical history Other Substance use disorder Social History Housing: House Alcohol intake: current Alcohol intake frequency: a few times a week Patient Tobacco Use Status: Current someday Tobacco user Tobacco use type: Cigarette Cigarettes Per Day: 2 Years Smoked: 30 e-Cigarette/Vaping Use: Never Used service: No Current occupational status: employed Sexual orientation: Straight/Heterosexual Gender identity: Female Cognitive needs: No Hearing needs: No Vision needs: Yes Review of Systems Const All systems reviewed & are unremarkable except as noted in HPI and below Physical Exam Vital Signs: Last Vital Signs Temp 97.9 F 06/14/24 08:05 Pulse 68 06/14/24 08:05 BP 120/78 06/14/24 08:05 Pulse Ox 98 06/14/24 08:05 Oxygen Delivery Method Room Air 06/14/24 08:05 BMI result Body Mass Index 25.9 Const General: cooperative and comfortable Orientation/consciousness: patient oriented x3 Resp Effort & Inspection: normal respiratory effort and able to speak in complete sentences Auscultation: no crackles, no rales, rhonchi throughout and wheezes throughout Cardio Heart sounds: S1 normal heart sound present and S2 normal heart sound present Neuro General: patient oriented x3, gait normal and moves all extremities Psych Speech and movement: Normal speech and movement present Assessment & Plan Assessment & Plan (1) Wheezing on auscultation: Code(s): R06.2 - Wheezing Plan: Ordered Prednisone Ordered Abx (2) Cough in adult: Code(s): R05.9 - Cough, unspecified Plan: OTC cough remedies Abx ad directed. Acetaminophen for pain relief. Medications: New azithromycin 500 mg PO DAILY 3 tabs 0RF 3 days R05.9 - Cough, unspecified, R06.2 - Wheezing prednisone 50 mg PO DAILY 5 tabs 0RF 5 days R05.9 - Cough, unspecified, R06.2 - Wheezing doxycycline hyclate 100 mg PO BID 20 caps 0RF 10 days R05.9 - Cough, unspecified, R06.2 - Wheezing benzonatate 100 mg PO TID 30 caps 0RF R05.9 - Cough, unspecified Coding Level of Care Code Est Pt Level 3 (23411) Diagnoses Wheezing on auscultation R06.2 Cough in adult R05.9 Time Spent (min) 15
== END 2024-06-14 08:28 | disposition home or self-care (01) ==
PROVIDERS: PCP Internal Medicine; Visit Provider Nurse Practitioner Family
DX: R06.2 Wheezing (principal); R05.9 Cough, unspecified
CPT/HCPCS: 99213

== ENCOUNTER 2024-07-15 06:02 | Outpatient (REF) | payer BC, SELFPAY ==
[2024-07-15 10:48] LABS: Alanine Aminotransferase 23 U/L (0-31); Albumin Level 4.1 g/dL (3.5-5.0); Alkaline Phosphatase 82 U/L (39-117); Anion Gap 12 (12-20); Aspartate Amino Transferase 20 U/L (5-31); Bilirubin Total 0.7 mg/dL (0.0-1.0); Blood Urea Nitrogen 13 mg/dL (9-16); Calcium 9.3 mg/dL (8.4-10.2); Carbon Dioxide 25 mmol/L (22-29); Chloride 106 mmol/L (96-108); Estimated Glomerular Filt Rate > 60; Glucose Random 234 mg/dL (60-115); Potassium 3.8 mmol/L (3.3-5.1); Sodium 139 mmol/L (135-145); Total Protein 6.6 g/dL (6.5-8.0)
[2024-07-15 10:55] LABS: Estimated Average Glucose 197 mg/dL; Hemoglobin A1c % 8.5 % (<6.0)
== END 2024-07-15 06:03 | disposition home or self-care (01) ==
LOC: HO.HMGCLDS 06:02
PROVIDERS: PCP Internal Medicine; Visit Provider Internal Medicine
DX: I10 Essential (primary) hypertension (principal); E78.9 Disorder of lipoprotein metabolism, unspecified; E11.9 Type 2 diabetes mellitus without complications
CPT/HCPCS: 36415; 80053; 83036

== ENCOUNTER 2024-07-16 13:45 | Outpatient (AMB) | payer BC, SELFPAY ==
--- NOTE | 2024-07-16 13:48 | A.OFFPC_ITS ---
Vital Signs 07/16/24 13:53 Height 5 ft 3 in Weight 144 lb 4 oz BMI 25.5 BP 126/78 Blood Pressure Location Rt brachial Position Sitting Pulse 92 Pulse Source Pulse Oximeter Pulse Oximetry (%) 97 Oxygen Delivery Method Room Air Intake Visit Reasons: PE Allergies No Known Allergies Allergy (Verified 07/16/24 13:49) Medication List - Last Reconciled 07/16/24 by Gemini Canas MD cholecalciferol (vitamin D3) 50 mcg PO DAILY 90 days lisinopril 20 mg PO DAILY lorazepam 1 mg PO DAILY PRN sertraline 25 mg PO DAILY simvastatin 40 mg PO DAILY 90 days Tobacco use date assessed: 07/16/24 Fall risk assessment: No Falls in past year Last assessed Fall Risk: 07/16/24 Dental Screening Dental Screen Date: 07/16/24 Did you have a dental visit in the last 12 months?: Yes Did you have a dental problem in the last 6 months where you did not have access to dental care?: No Was dental information given to patient?: Patient has dentist HPI PE HPI Details Patient is 63-year-old female came in today for her physical exam She was in walk-in clinic yesterday and was diagnosed with respiratory tract i nfection patient was wheezing She was given prednisone and antibiotic She is feeling better today On examination her lungs are clear Labs done recently shows hemoglobin A1c of 8.5, I am starting her on glipizide 5 mg daily, we will also sent glucometer and other supplies so she can start monitoring her blood sugar Colonoscopy was July of 2022 OBGYN visit was January of 2022 Mammogram was October of this year Blood pressure is stable Patient is seeing psychiatrist and is getting lorazepam and sertraline through them Return in 3 months for follow-up appointment [facility] Medical History High cholesterol Hypertension Surgical History History of hysterectomy History of section History of foot surgery Family History Father HTN (hypertension) Mother HTN (hypertension) Diabetes mellitus Depression Daughter HTN (hypertension) Son No problems noted. Sister No problems noted. Sister No problems noted. Sister No problems noted. Maternal Grandmother Unknown family medical history Maternal Grandfather Unknown family medical history Paternal Grandmother Unknown family medical history Other Substance use disorder Social History Housing: House Alcohol intake: current Alcohol intake frequency: a few times a week Patient Tobacco Use Status: Current someday Tobacco user Tobacco use type: Cigarette Cigarettes Per Day: 2 Years Smoked: 30 e-Cigarette/Vaping Use: Never Used service: No Current occupational status: employed Sexual orientation: Straight/Heterosexual Gender identity: Female Cognitive needs: No Hearing needs: No Vision needs: Yes Questionnaire Thrive Questionnaire Date Thrive assessed: 10/18/23 AUDIT C Alcohol Use Questionnaire (AUDIT-C) 1. How often do you have a drink containing alcohol?: Monthly or less 2. How many drinks containing alcohol do you have on a typical day when you are drinking?: 1 or 2 3. How often do you have six or more drinks on one occasion?: Never Total Score: 1 Score Reviewed/Action Taken: Yes PAMELA-7 AMB Questionnaire PAMELA-7 Date PAMELA - 7 assessed: 10/18/23 Source: Developed by Drs. Gerald Butler, Viola Miles, Kain Funez and colleagues, with an educational martir from [employer]. Review of Systems Const Denies chills, Denies fever(s) and Denies headache(s) Eyes Denies blurry vision ENT Denies headache(s), Denies nasal discharge, Denies nasal obstruction, Denies odynophagia and Denies sinus pain Card Denies chest pain at rest and Denies chest pain with activity Resp Denies cough and Denies hemoptysis GI Denies diarrhea, Denies odynophagia, Denies vomiting and Denies hematemesis Reports as per HPI Musc Denies abnormal gait Skin/Breast Reports as per HPI Neuro Denies Neuro-related abnormal movements, Denies Abnormal speech present, Denies abnormal gait, Denies headache(s) and Denies Sensory deficit (Neuro) Psych Denies mood swings and Denies paranoia Endo Reports as per HPI Blane/Lymph Reports as per HPI Aller/Immun Reports as per HPI Physical exam (Primary Care) Vital Signs: Last Vital Signs Pulse 92 07/16/24 13:53 BP 126/78 07/16/24 13:53 Pulse Ox 97 07/16/24 13:53 Oxygen Delivery Method Room Air 07/16/24 13:53 BMI result Body Mass Index 25.5 Tobacco/Smoking Status: Tobacco use Status Tobacco use date assessed 07/16/24 07/16/24 13:49 Patient Tobacco Use Status Current someday Tobacco 07/16/24 13:49 Tobacco use type Cigarette 07/16/24 13:49 e-Cigarette/Vaping Use Never Used 07/16/24 13:49 Thrive Assessment: Date of Thrive Assessment Date Thrive assessed 10/18/23 07/16/24 13:49 Const General: cooperative, comfortable and no acute distress Orientation/consciousness: patient oriented x3 HENMT Head: Yes normocephalic and Yes atraumatic Eyes General: appearance normal, both eyes and all related structures Pupils: Equal, round and reactive pupils present EOM: EOMs intact bilaterally Neck Neck: Yes supple and No lymphadenopathy Thyroid: Thyroid normal Lymphatic: no lymphadenopathy noted Chest Breast/axilla palpation: normal palpation of the breasts Resp Effort & Inspection: normal respiratory effort and able to speak in complete sentences Auscultation: clear to auscultation bilaterally Cardio Heart sounds: S1 normal heart sound present and S2 normal heart sound present GI Palpation (GI): Soft to palpation and nontender Auscultation: normal bowel sounds General: Yes no CVA tenderness Back/Spine/Pelvis Back: no CVA tenderness Skin General skin exam: elasticity normal and turgor normal Neuro General: patient oriented x3 and gait normal Cranial nerves: Yes Equal, round and reactive pupils present Speech: No Abnormal speech present Sensory Exam: No Sensory deficit (Neuro) Coordination: tandem gait normal and Romberg test negative Extrem General: Yes normal exam except as noted and No edema Coding Level of Care Code Est Pt Level 3 (99620) Est Pt Prev Care 40-64y(53587) Diagnoses Encounter for general adult medical examination with abnormal findings Z00. Hypertension, essential I10 Lipid disorder E78.9 Type 2 diabetes mellitus without complication, without long-term current use of insulin E11.9 Diabetes mellitus type: type 2 Diabetes mellitus custodial insulin use: without exterminator helper use Diabetes mellitus complication status: without complication Anxiety, generalized F41.1 Assessment & Plan Assessment & Plan (1) Encounter for general adult medical examination with abnormal findings: Code(s): Z00.01 - Encounter for general adult medical examination with abnormal findings Category: Medical (2) Hypertension, essential: Code(s): I10 - Essential (primary) hypertension Category: Medical (3) Lipid disorder: Code(s): E78.9 - Disorder of lipoprotein metabolism, unspecified Category: Medical (4) Diabetes mellitus: Code(s): E11.9 - Type 2 diabetes mellitus without complications Category: Medical Qualifiers: Diabetes mellitus type: type 2 Diabetes mellitus exterminator helper insulin use: without exterminator helper use Diabetes mellitus complication status: without complication Qualified Code(s): E11.9 - Type 2 diabetes mellitus without complications (5) Anxiety, generalized: Code(s): F41.1 - Generalized anxiety disorder Category: Medical Plan Patient is 63-year-old female came in today for her physical exam She was in walk-in clinic yesterday and was diagnosed with respiratory tract infection patient was wheezing She was given prednisone and antibiotic She is feeling better today On examination her lungs are clear Labs done recently shows hemoglobin A1c of 8.5, I am starting her on glipizide 5 mg daily, we will also sent glucometer and other supplies so she can start monitoring her blood sugar Colonoscopy was July of 2022 OBGYN visit was January of 2022 Mammogram was October of this year Blood pressure is stable Patient is seeing psychiatrist and is getting lorazepam and sertraline through them Return in 3 months for follow-up appointment Medications: New glipizide 5 mg PO DAILY 90 tabs 0RF Refilled simvastatin 40 mg PO DAILY 90 days 90 tabs 1RF lisinopril 20 mg PO DAILY 90 tabs 1RF
[2024-07-16 13:53] VITALS: BP 126/78; PULSE 92; O2SAT 97; BMI 25.5
== END 2024-07-16 14:18 | disposition home or self-care (01) ==
PROVIDERS: PCP Internal Medicine; Visit Provider Internal Medicine
DX: Z00.01 Encounter for general adult medical examination with abnormal findings (principal); E11.9 Type 2 diabetes mellitus without complications; I10 Essential (primary) hypertension; E78.9 Disorder of lipoprotein metabolism, unspecified; F41.1 Generalized anxiety disorder

== ENCOUNTER → 2024-07-16 13:45 | Outpatient (BNVA) | payer BC, SELFPAY | PROVIDERS: PCP Internal Medicine; Visit Provider Internal Medicine ==

== ENCOUNTER 2024-08-02 08:23 | Outpatient (AMB) | payer BC, SELFPAY ==
--- NOTE | 2024-08-02 08:35 | MHC.PC.OV ---
Vital Signs 08/02/24 08:37 Height 5 ft 3 in Weight 140 lb 2 oz BMI 24.8 BP 120/76 Blood Pressure Location Rt brachial Position Sitting Pulse 95 Pulse Source Pulse Oximeter Temp 97.6 F Temp Source Oral Pulse Oximetry (%) 98 Oxygen Delivery Method Room Air Intake Visit Reasons: Regular Visit Allergies No Known Allergies Allergy (Verified 07/16/24 13:49) Medication List - Last Reconciled 08/02/24 by Gemini Canas MD cholecalciferol (vitamin D3) 50 mcg PO DAILY 90 days glipizide 5 mg PO DAILY lisinopril 20 mg PO DAILY lorazepam 1 mg PO DAILY PRN sertraline 25 mg PO DAILY simvastatin 40 mg PO DAILY 90 days Tobacco use date assessed: 07/16/24 Dental Screening Dental Screen Date: 07/16/24 HPI Regular Visit HPI Details Patient is 63-year-old female came in today to be evaluated for chest congestion Which has been going on for 2 weeks Patient is diabetic, she was recently started on glipizide 5 mg Patient is reluctant to take the medication however she is taking Patient says that she starts feeling anxious when she takes a medication, I would recommend that she monitor her blood sugar at that time She has not taken her glipizide as yet, last time she took it was yesterday morning Her spot glucose is 246 fasting Explained to patient that it is important she take her medication regularly And I would also like her to start monitoring her blood sugar specially if she feels it is low Otherwise fasting blood sugar is recommended and keep a log She is having sinus congestion postnasal drip chest congestion She had similar symptoms 14 of June when she was evaluated in walk-in clinic and was treated with antibiotic She did get better at that time Patient continued to smoke as well, she would need pulmonary function test once she is feeling better She has an appointment for follow-up in October I would strongly recommend that she stopped smoking I have ordered chest x-ray for the patient and azithromycin course sent. [facility] Medical History High cholesterol Hypertension Surgical History History of hysterectomy History of section History of foot surgery Family History Father HTN (hypertension) Mother HTN (hypertension) Diabetes mellitus Depression Daughter HTN (hypertension) Son No problems noted. Sister No problems noted. Sister No problems noted. Sister No problems noted. Maternal Grandmother Unknown family medical history Maternal Grandfather Unknown family medical history Paternal Grandmother Unknown family medical history Other Substance use disorder Social History Housing: House Alcohol intake: current Alcohol intake frequency: a few times a week Patient Tobacco Use Status: Current someday Tobacco user Tobacco use type: Cigarette Cigarettes Per Day: 2 Years Smoked: 30 e-Cigarette/Vaping Use: Never Used service: No Current occupational status: employed Sexual orientation: Straight/Heterosexual Gender identity: Female Cognitive needs: No Hearing needs: No Vision needs: Yes Questionnaire Thrive Questionnaire Date Thrive assessed: 10/18/23 PAMELA-7 AMB Questionnaire PAMELA-7 Date PAMELA - 7 assessed: 10/18/23 Source: Developed by Drs. Gerald Butler, Viola Miles, Kain Funez and colleagues, with an educational martir from [employer]. Review of Systems Const Reports as per HPI Eyes Denies change in vision ENT Denies bleeding gums, Denies dental pain, Denies ear discharge and Denies mouth pain Card Denies chest pain at rest, Denies chest pain with activity, Denies syncope and Denies irregular heart rhythm Resp Denies hemoptysis and Denies stridor GI Denies diarrhea and Denies vomiting Musc Denies as per HPI Skin/Breast Denies skin ulcer and Denies sores Neuro Denies syncope Physical exam (Primary Care) Vital Signs: Last Vital Signs Temp 97.6 F 08/02/24 08:37 Pulse 95 08/02/24 08:37 BP 120/76 08/02/24 08:37 Pulse Ox 98 08/02/24 08:37 Oxygen Delivery Method Room Air 08/02/24 08:37 BMI result Body Mass Index 24.8 Tobacco/Smoking Status: Tobacco use Status Tobacco use date assessed 07/16/24 08/02/24 08:39 Patient Tobacco Use Status Current someday Tobacco 08/02/24 08:39 Tobacco use type Cigarette 08/02/24 08:39 e-Cigarette/Vaping Use Never Used 08/02/24 08:39 Thrive Assessment: Date of Thrive Assessment Date Thrive assessed 10/18/23 08/02/24 08:39 Const General: cooperative and comfortable Orientation/consciousness: patient oriented x3 HENMT Head: Yes normocephalic and Yes atraumatic Ears: external ears normal General nose exam: Normal external nose present Mouth: Normal oral and palatal mucosa present Neck Neck: Yes trachea midline and Yes supple Resp Other: Coughing with deep breath Auscultation: clear to auscultation bilaterally Cardio Heart sounds: S1 normal heart sound present and S2 normal heart sound present GI Auscultation: normal bowel sounds Skin General skin exam: elasticity normal and turgor normal Neuro General: patient oriented x3 and moves all extremities Gait exam (Neuro): Normal gait present Extrem Right upper extremity: no edema Psych Mental Status: mental status grossly normal Coding Level of Care Code Est Pt Level 4 (48487) Diagnoses Chest congestion R09.89 Type 2 diabetes mellitus without complication, without long-term current use of insulin E11.9 Diabetes mellitus complication status: without complication 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: without chcf use Diabetes mellitus type: type 2 Anxiety, generalized F41.1 Tobacco abuse Z72.0 Assessment & Plan Assessment & Plan (1) Chest congestion: Code(s): R09.89 - Other specified symptoms and signs involving the circulatory and respiratory systems Category: Medical (2) Diabetes mellitus: Code(s): E11.9 - Type 2 diabetes mellitus without complications Category: Medical Qualifiers: Diabetes mellitus complication status: without complication Diabetes mellitus chcf insulin use: without marine oil terminal 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 use Diabetes mellitus type: type 2 Qualified Code(s): E11.9 - Type 2 diabetes mellitus without complications (3) Anxiety, generalized: Code(s): F41.1 - Generalized anxiety disorder Category: Medical (4) Tobacco abuse: Code(s): Z72.0 - Tobacco use Category: Medical Plan Patient is 63-year-old female came in today to be evaluated for chest congestion Which has been going on for 2 weeks Patient is diabetic, she was recently started on glipizide 5 mg Patient is reluctant to take the medication however she is taking Patient says that she starts feeling anxious when she takes a medication, I would recommend that she monitor her blood sugar at that time She has not taken her glipizide as yet, last time she took it was yesterday morning Her spot glucose is 246 fasting Explained to patient that it is important she take her medication regularly And I would also like her to start monitoring her blood sugar specially if she feels it is low Otherwise fasting blood sugar is recommended and keep a log She is having sinus congestion postnasal drip chest congestion She had similar symptoms 14 of June when she was evaluated in walk-in clinic and was treated with antibiotic She did get better at that time Patient continued to smoke as well, she would need pulmonary function test once she is feeling better She has an appointment for follow-up in October I would strongly recommend that she stopped smoking I have ordered chest x-ray for the patient and azithromycin course sent. Orders: Orders XR chest 2V Today E11.9 - Type 2 diabetes mellitus without complications, F41.1 - Generalized anxiety disorder, R09.89 - Other specified symptoms and signs involving the circulatory and respiratory systems, Z72.0 - Tobacco use Medications: New azithromycin Take 2 tablets today then 1 daily 250 mg PO ONCE 5 days 6 tabs 0RF J06.9 - Acute upper respiratory infection, unspecified
[2024-08-02 08:37] VITALS: BP 120/76; PULSE 95; TEMP 36.4; O2SAT 98; BMI 24.8
== END 2024-08-02 09:22 | disposition home or self-care (01) ==
PROVIDERS: PCP Internal Medicine; Visit Provider Internal Medicine
DX: R09.89 Other specified symptoms and signs involving the circulatory and respiratory systems (principal); E11.9 Type 2 diabetes mellitus without complications; F41.1 Generalized anxiety disorder; Z72.0 Tobacco use

== ENCOUNTER → 2024-08-02 08:23 | Outpatient (BNVA) | payer BC, SELFPAY | PROVIDERS: PCP Internal Medicine; Visit Provider Internal Medicine ==

== ENCOUNTER 2024-08-02 09:05 | Outpatient (REF) | payer BC, SELFPAY ==
--- NOTE | ~2024-08-02 | XR_ITS ---
EXAMINATION: XR CHEST CLINICAL INFORMATION: Other specific signs and symptoms involving the circulatory and respiratory system. COMPARISON: None available. TECHNIQUE: 2 views of the chest were obtained. FINDINGS: The lungs are clear. The cardiomediastinal silhouette is normal in size. There is no pleural effusion or pneumothorax. No acute osseous abnormality. XR/XR chest 2V IMPRESSION: No acute cardiopulmonary findings. Electronically signed by: Brandon Salinas MD 08/02/2024 10:49 AM EDT
== END 2024-08-02 09:06 | disposition home or self-care (01) ==
LOC: HO.HMGCX 09:05
PROVIDERS: PCP Internal Medicine; Visit Provider Internal Medicine
DX: R09.89 Other specified symptoms and signs involving the circulatory and respiratory systems (principal); E11.9 Type 2 diabetes mellitus without complications; F41.1 Generalized anxiety disorder; Z72.0 Tobacco use
CPT/HCPCS: 71046

== ENCOUNTER 2024-10-29 12:47 | Outpatient (REF) | payer BC, SELFPAY ==
[2024-10-29 16:09] LABS: MANUAL DIFF FLAG NO
[2024-10-29 16:16] LABS: Basophils Percent Auto 0.4 % (0-2); Eosinophils Absolute Auto 0.1 X10*3/uL (0.0-0.4); Eosinophils Percent Auto 1.2 % (0-4); Hematocrit 38.8 % (37.0-47.0); Hemoglobin 13.8 g/dl (12.0-16.0); Imm Gran Abs Auto 0.01 X10*3/uL (0.00-0.03); Imm Gran Pct Auto 0.1 % (0.0-0.4); Lymphocytes Absolute Auto 2.2 X10*3/uL (1.2-4.9); Lymphocytes Percent Auto 31.4 % (20-40); Mean Corpuscular HGB Conc 35.6 g/dl (31.0-35.0); Mean Corpuscular Hemoglobin 32.5 pg (27.0-33.0); Mean Corpuscular Volume 91.5 fL (80.0-98.0); Mean Platelet Volume 9.7 fL (9.4-12.3); Monocytes Absolute Auto 0.6 X10*3/uL (0.1-1.2); Monocytes Percent Auto 8.9 % (2-11); Platelet Count 263 X10*3/uL (160-400); Red Blood Count 4.24 X10*6/uL (4.20-5.50); Red Cell Distribution Width 12.3 % (11.0-16.0)
[2024-10-29 16:39] LABS: Alanine Aminotransferase 29 U/L (0-31); Albumin Level 4.4 g/dL (3.5-5.0); Alkaline Phosphatase 88 U/L (39-117); Anion Gap 9 (12-20); Aspartate Amino Transferase 25 U/L (5-31); Bilirubin Total 0.5 mg/dL (0.0-1.0); Blood Urea Nitrogen 19 mg/dL (9-16); Calcium 9.6 mg/dL (8.4-10.2); Carbon Dioxide 25 mmol/L (22-29); Chloride 105 mmol/L (96-108); Estimated Glomerular Filt Rate > 60; Glucose Random 165 mg/dL (60-115); Potassium 3.9 mmol/L (3.3-5.1); Sodium 135 mmol/L (135-145); Total Protein 7.1 g/dL (6.5-8.0)
[2024-10-29 17:02] LABS: Creatinine Urine 115.78 mg/dL; Microalbum/Creatinine Ratio Ur 8.6 ug/mg cr (<30)
[2024-10-30 20:18] LABS: LDL Cholesterol Direct 99 mg/dL (<100)
== END 2024-10-29 12:48 | disposition home or self-care (01) ==
LOC: HO.HMGCLDS 12:47
PROVIDERS: PCP Internal Medicine; Visit Provider Internal Medicine
DX: I10 Essential (primary) hypertension (principal); E78.9 Disorder of lipoprotein metabolism, unspecified; Z72.0 Tobacco use; R49.0 Dysphonia; E55.9 Vitamin D deficiency, unspecified; F41.1 Generalized anxiety disorder; F33.0 Major depressive disorder, recurrent, mild; E11.9 Type 2 diabetes mellitus without complications
CPT/HCPCS: 36415; 80053; 82043; 82570; 83036; 83721; 85025

== ENCOUNTER 2024-10-29 12:47 | Outpatient (AMB) | payer BC, SELFPAY ==
[2024-10-29 12:49] VITALS: BP 112/80; PULSE 102; O2SAT 96; BMI 24.4
--- NOTE | 2024-10-29 12:49 | A.OFFPC_ITS ---
Vital Signs 10/29/24 12:49 Height 5 ft 3 in Weight 138 lb BMI 24.4 BP 112/80 Blood Pressure Location Lt brachial Position Sitting Pulse 102 H Pulse Source Pulse Oximeter Pulse Oximetry (%) 96 Oxygen Delivery Method Room Air Intake Visit Reasons: 3 months f/up Allergies No Known Allergies Allergy (Verified 10/29/24 12:49) Medication List - Last Reconciled 10/29/24 by Gemini Canas MD cholecalciferol (vitamin D3) 50 mcg PO DAILY 90 days glipizide 5 mg PO DAILY lisinopril 20 mg PO DAILY lorazepam 1 mg PO DAILY PRN sertraline 25 mg PO DAILY simvastatin 40 mg PO DAILY 90 days Tobacco use date assessed: 10/29/24 Fall risk assessment: No Falls in past year Last assessed Fall Risk: 10/29/24 Dental Screening Dental Screen Date: 10/29/24 Did you have a dental visit in the last 12 months?: Yes Did you have a dental problem in the last 6 months where you did not have access to dental care?: Yes Was dental information given to patient?: Patient has dentist HPI 3 months f/up HPI Details - The patient is a 64-year-old female pr esenting for follow-up of Type 2 D iabetes Mellitus and Hypertension. - Struggling with blood sugar control; e motional stress affecting diabetes management. - Management of Diabetes Mellitus compli cated by recent stress factors including bereavement. Recent loss of , and son is struggling with liver problem - Continues to manage Essential Hyperten mikie effectively with prescribed medications. - Depression and insomnia persist, with current medications including sertraline. - Efforts to cease tobacco use ongoing; patient has reduced smoking but not completely quit. - Past interventions for sleep include l orazepam, use has been sporadic. Hemoglobin A1c 7.7 Assessment and Plan 64-year-old female with a history of Typ e 2 Diabetes Mellitus and Essential Hypertension presenting with difficulties in managing blood sugar levels. Recent life stressors appear to exacerbate her diabetic control, with A1c previously elevated. Hypertension remains well-controlled under current therapeutic regimen. Depression and insomnia are ongoing concerns, possibly worsened by stress. Continued, though reduced, tobacco use noted. 1. Depression Continue sertraline, consider counseling for additional support due to stress. 2. Essential Hypertension Continue current antihypertensives, maintain monitoring of blood pressure. 3. Tobacco Use Disorder Encourage use of nicotine patches, promote behavioral cessation strategies. 5. Anxiety Manage ongoing anxiety symptoms through existing pathway, consider therapeutic interventions. 6. Insomnia Sporadic lorazepam use noted, explore non-pharmacologic sleep aids. Medications - Glipizide 5 mg for Type 2 Diabetes Loraine litus - Antihypertensive medication (not speci fied, 70 mg for blood pressure management) - Lorazepam as needed for insomnia - Sertraline 25 mg for depression - Simvastatin 40 mg for hyperlipidemia - Vitamin D supplement Diagnostic results - Labs: Previous HbA1c of 8.5% in agatha Patient Instructions - Monitor blood sugar levels at home, es pecially after emotional stress. - Continue current medications as prescr ibed. - Consider dietary adjustments to help w ith blood sugar management. - Try to quit smoking completely; use av ailable nicotine patches and behavioral strategies. - Maintain regular blood pressure monito ring. - Consider counseling or therapy for man aging stress and anxiety. Review of Systems - Psychiatric: Reports anxiety, depressi on, occasional insomnia. - Respiratory: Occasional chest congesti on reported. 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 Sister No problems noted. Sister No problems noted. Sister No problems noted. Maternal Grandmother Unknown family medical history Maternal Grandfather Unknown family medical history Paternal Grandmother Unknown family medical history Other Substance use disorder Social History Housing: House Alcohol intake: current Alcohol intake frequency: a few times a week Patient Tobacco Use Status: Current someday Tobacco user Tobacco use type: Cigarette Cigarettes Per Day: 2 Years Smoked: 30 e-Cigarette/Vaping Use: Never Used service: No Current occupational status: employed Sexual orientation: Straight/Heterosexual Gender identity: Female Cognitive needs: No Hearing needs: No Vision needs: Yes Questionnaire Thrive Questionnaire Date Thrive assessed: 10/18/23 AUDIT C Alcohol Use Questionnaire (AUDIT-C) 1. How often do you have a drink containing alcohol?: Monthly or less 2. How many drinks containing alcohol do you have on a typical day when you are drinking?: 1 or 2 3. How often do you have six or more drinks on one occasion?: Never Total Score: 1 PAMELA-7 AMB Questionnaire PAMELA-7 Date PAMELA - 7 assessed: 10/18/23 Source: Developed by Drs. Gerald Butler, Viola Miles, Kain Funez and colleagues, with an educational martir from [employer]. Physical exam (Primary Care) Vital Signs: Last Vital Signs Pulse 102 H 10/29/24 12:49 BP 112/80 10/29/24 12:49 Pulse Ox 96 10/29/24 12:49 Oxygen Delivery Method Room Air 10/29/24 12:49 BMI result Body Mass Index 24.4 Tobacco/Smoking Status: Tobacco use Status Tobacco use date assessed 10/29/24 10/29/24 12:56 Patient Tobacco Use Status Current someday Tobacco 10/29/24 12:56 Tobacco use type Cigarette 10/29/24 12:56 e-Cigarette/Vaping Use Never Used 10/29/24 12:56 Thrive Assessment: Date of Thrive Assessment Date Thrive assessed 10/18/23 10/29/24 12:56 Results AMB Hemoglobin A1c AMB Hemoglobin A1c 7.7 % Last Edit by UMM Douglas on 10/29/24 13:2 5 Results Reviewed Results Reviewed: Laboratory Last Values Hgb A1c (Clinic) 7.7 % (4.0-6.0) H 10/29/24 13:24 Coding Level of Care Code Est Pt Level 4 (53907) Diagnoses Controlled type 2 diabetes mellitus without complication, without long-term current use of insulin E11.9 Diabetes mellitus complication status: without complication Diabetes mellitus watermaster insulin use: without watermaster use Hypertension, essential I10 Lipid disorder E78.9 Tobacco abuse Z72.0 Hoarseness of voice R49.0 Vitamin D deficiency E55.9 Anxiety, generalized F41.1 Mild episode of recurrent major depressive disorder F33.0 Active/Remission status: currently active Major depression episode severity: mild Assessment & Plan Assessment & Plan (1) Diabetes type 2, controlled: Code(s): E11.9 - Type 2 diabetes mellitus without complications Category: Medical Qualifiers: Diabetes mellitus complication status: without complication Diabetes mellitus watermaster insulin use: without mcc use Qualified Code(s): E11.9 - Type 2 diabetes mellitus without complications (2) Hypertension, essential: Code(s): I10 - Essential (primary) hypertension Category: Medical (3) Lipid disorder: Code(s): E78.9 - Disorder of lipoprotein metabolism, unspecified Category: Medical (4) Tobacco abuse: Code(s): Z72.0 - Tobacco use Category: Medical (5) Hoarseness of voice: Code(s): R49.0 - Dysphonia Category: Medical (6) Vitamin D deficiency: Code(s): E55.9 - Vitamin D deficiency, unspecified Category: Medical (7) Anxiety, generalized: Code(s): F41.1 - Generalized anxiety disorder Category: Medical (8) Major depression, recurrent: Code(s): F33.9 - Major depressive disorder, recurrent, unspecified Category: Medical Qualifiers: Active/Remission status: currently active Major depression episode severity: mild Qualified Code(s): F33.0 - Major depressive disorder, recurrent, mild Plan - The patient is a 64-year-old female presenting for follow-up of Type 2 Diabetes Mellitus and Hypertension. - Struggling with blood sugar control; emotional stress affecting diabetes management. - Management of Diabetes Mellitus complicated by recent stress factors including bereavement. Recent loss of , and son is struggling with liver problem - Continues to manage Essential Hypertension effectively with prescribed medications. - Depression and insomnia persist, with current medications including sertraline. - Efforts to cease tobacco use ongoing; patient has reduced smoking but not completely quit. - Past interventions for sleep include lorazepam, use has been sporadic. Assessment and Plan 64-year-old female with a history of Type 2 Diabetes Mellitus and Essential Hypertension presenting with difficulties in managing blood sugar levels. Recent life stressors appear to exacerbate her diabetic control, with A1c previously elevated. Hypertension remains well-controlled under current therapeutic regimen. Depression and insomnia are ongoing concerns, possibly worsened by stress. Continued, though reduced, tobacco use noted. 1. Depression Continue sertraline, consider counseling for additional support due to stress. 2. Essential Hypertension Continue current antihypertensives, maintain monitoring of blood pressure. 3. Tobacco Use Disorder Encourage use of nicotine patches, promote behavioral cessation strategies. 5. Anxiety Manage ongoing anxiety symptoms through existing pathway, consider therapeutic interventions. 6. Insomnia Sporadic lorazepam use noted, explore non-pharmacologic sleep aids. Medications - Glipizide 5 mg for Type 2 Diabetes Mellitus - Antihypertensive medication (not specified, 70 mg for blood pressure management) - Lorazepam as needed for insomnia - Sertraline 25 mg for depression - Simvastatin 40 mg for hyperlipidemia - Vitamin D supplement Diagnostic results - Labs: Previous HbA1c of 8.5% in June Patient Instructions - Monitor blood sugar levels at home, especially after emotional stress. - Continue current medications as prescribed. - Consider dietary adjustments to help with blood sugar management. - Try to quit smoking completely; use available nicotine patches and behavioral strategies. - Maintain regular blood pressure monitoring. - Consider counseling or therapy for managing stress and anxiety. Orders: Orders Microalbumin, Random (w Creat) Today E11.9 - Type 2 diabetes mellitus without complications, E55.9 - Vitamin D deficiency, unspecified, E78.9 - Disorder of lipoprotein metabolism, unspecified, F33.0 - Major depressive disorder, recurrent, mild, F41.1 - Generalized anxiety disorder, I10 - Essential (primary) hypertension, R49.0 - Dysphonia, Z72.0 - Tobacco use Hemoglobin A1c 3 Months E11.9 - Type 2 diabetes mellitus without complications, E55.9 - Vitamin D deficiency, unspecified, E78.9 - Disorder of lipoprotein metabolism, unspecified, F33.0 - Major depressive disorder, recurrent, mild, F4 1.1 - Generalized anxiety disorder, I10 - Essential (primary) hypertension, R49.0 - Dysphonia, Z72.0 - Tobacco use Comprehensive Met. Panel 3 Months E11.9 - Type 2 diabetes mellitus without complications, E55.9 - Vitamin D deficiency, unspecified, E78.9 - Disorder of lipoprotein metabolism, unspecified, F33.0 - Major depressive disorder, recurrent, mild, F41.1 - Generalized anxiety disorder, I10 - Essential (primary) hypertension, R49.0 - Dysphonia, Z72.0 - Tobacco use Complete Blood Count Auto Diff Today E11.9 - Type 2 diabetes mellitus without complications, E55.9 - Vitamin D deficiency, unspecified, E78.9 - Disorder of lipoprotein metabolism, unspecified, F33.0 - Major depressive disorder, recurrent, mild, F41.1 - Generalized anxiety disorder, I10 - Essential (primary) hypertension, R49.0 - Dysphonia, Z72.0 - Tobacco use Comprehensive Met. Panel Today E11.9 - Type 2 diabetes mellitus without complications, E55.9 - Vitamin D deficiency, unspecified, E78.9 - Disorder of lipoprotein metabolism, unspecified, F33.0 - Major depressive disorder, recurrent, mild, F41.1 - Generalized anxiety disorder, I10 - Essential (primary) hypertension, R49.0 - Dysphonia, Z72.0 - Tobacco use LDL Cholesterol Direct Today E11.9 - Type 2 diabetes mellitus without complications, E55.9 - Vitamin D deficiency, unspecified, E78.9 - Disorder of lipoprotein metabolism, unspecified, F33.0 - Major depressive disorder, recurrent, mild, F41.1 - Generalized anxiety disorder, I10 - Essential (primary) hypertension, R49.0 - Dysphonia, Z72.0 - Tobacco use Complete Blood Count Auto Diff 3 Months E11.9 - Type 2 diabetes mellitus without complications, E55.9 - Vitamin D deficiency, unspecified, E78.9 - Disorder of lipoprotein metabolism, unspecified, F33.0 - Major depressive disorder, recurrent, mild, F41.1 - Generalized anxiety disorder, I10 - Essential (primary) hypertension, R49.0 - Dysphonia, Z72.0 - Tobacco use AMB Hemoglobin A1c Today Z13.9 - Encounter for screening, unspecified
== END 2024-10-29 13:26 | disposition home or self-care (01) ==
PROVIDERS: PCP Internal Medicine; Visit Provider Internal Medicine
DX: E11.9 Type 2 diabetes mellitus without complications (principal); I10 Essential (primary) hypertension; E78.9 Disorder of lipoprotein metabolism, unspecified; Z72.0 Tobacco use; R49.0 Dysphonia; E55.9 Vitamin D deficiency, unspecified; F41.1 Generalized anxiety disorder; F33.0 Major depressive disorder, recurrent, mild; Z13.9 Encounter for screening, unspecified

== ENCOUNTER 2024-12-04 08:01 | Outpatient (AMB) | payer BC, SELFPAY ==
--- NOTE | 2024-12-04 08:08 | AM.OFFWIN_ITS ---
Intake Vital Signs 12/04/24 08:12 Weight 142 lb BP 124/82 Blood Pressure Location Lt brachial Position Sitting Pulse 96 Pulse Source Pulse Oximeter Temp 98.1 F Temp Source Oral Pulse Oximetry (%) 97 Oxygen Delivery Method Room Air Intake Visit Reasons: EP-sore throat Intake Note: Patient here for soreness at the roof of her mouth and pain going into ears that has been present for about 1 week. Patient Tobacco Use Status: Current someday Tobacco user Allergies No Known Allergies Allergy (Verified 12/04/24 08:19) Do you need a note to return to daycare/school/sports/work: No HPI HPI Comments History of Present Illness Details History of Present Illness - The patient is a 64 year old female pr esenting with a sore palate. - Symptoms started over a week ago; casey acterized as tender and annoying. - The patient has experienced minimal so re throat, and ear pain on occasion. - No self-observed lumps or abnormalitie s on the palate. - Management thus far includes saltwater gargles and Advil. - The patient has been experiencing stre ss, but its relation to symptoms is unclear. Physical Exam General: Cooperative, healthy appearing, comfortable, no acute distress and well developed Orientation: Patient oriented x3 Limitations: No limitations Head: Normal to inspection Ears: Hearing grossly normal bilaterally Nose: Normal external nose present Face and sinus: Normal facial exam Mouth: oral mucosa normal, palate normal, lips normal, tongue normal Eyes: Appearance normal, both eyes and all related structures Neck: Normal visual inspection and Yes full ROM Respiratory: Normal respiratory effort and able to speak in complete sentences. Skin: No rashes or lesions noted Neuro: Patient oriented x3 Extremities: Normal to inspection [facility] Medical History High cholesterol Hypertension Surgical History History of hysterectomy History of section History of foot surgery Family History Father HTN (hypertension) Mother HTN (hypertension) Diabetes mellitus Depression Daughter HTN (hypertension) Son No problems noted. Sister No problems noted. Sister No problems noted. Sister No problems noted. Maternal Grandmother Unknown family medical history Maternal Grandfather Unknown family medical history Paternal Grandmother Unknown family medical history Other Substance use disorder Social History Housing: House Alcohol intake: current Alcohol intake frequency: a few times a week Patient Tobacco Use Status: Current someday Tobacco user Tobacco use type: Cigarette Cigarettes Per Day: 2 Years Smoked: 30 e-Cigarette/Vaping Use: Never Used service: No Current occupational status: employed Sexual orientation: Straight/Heterosexual Gender identity: Female Cognitive needs: No Hearing needs: No Vision needs: Yes Review of Systems Const All systems reviewed & are unremarkable except as noted in HPI and below Physical Exam Vital Signs: Last Vital Signs Temp 98.1 F 12/04/24 08:12 Pulse 96 12/04/24 08:12 BP 124/82 12/04/24 08:12 Pulse Ox 97 12/04/24 08:12 Oxygen Delivery Method Room Air 12/04/24 08:12 HEENT Mouth: Normal oral and palatal mucosa present, lip normal and tongue normal Results AMB Rapid Strep AMB Rapid Strep Negative Last Edit by KIKI Nuñez on 12/04/24 08:35 Assessment & Plan Assessment & Plan (1) Acute pain of mouth: Code(s): K13.79 - Other lesions of oral mucosa Plan: Rapid strep negative. The examination of the sore palate did not reveal signs of infection or abnormalities, and it was concluded that symptoms might benefit from a compounded medicated mouthwash to provide analgesic relief. Further evaluation with a colleague was conducted, and an option to arrange an earlier appointment with the ENT was discussed, as patient consented. Ongoing management will focus on symptomatic relief while allowing time to assess any changes in the patient's condition. Patient was informed and verbally consented to the use of an ambient scribe for clinic note documentation during this visit. Orders: Orders AMB Rapid Strep Screen Today Z13.9 - Encounter for screening, unspecified Medications: New Magic Mouthwash Diphen/Lido/Antacid 1:1:1 Lidocaine Viscous 2 % 80mL; diphenhydramine 12.5 mg/5 mL 80mL; aluminum-mag hydrox-simeth [id number]/5mL 80mL 5 mL PO Q6-8H 240 mL 0RF Coding Level of Care Code Est Pt Level 3 (26213) Diagnoses Acute pain of mouth K13.79
[2024-12-04 08:12] VITALS: BP 124/82; PULSE 96; TEMP 36.7; O2SAT 97
== END 2024-12-04 08:56 | disposition home or self-care (01) ==
PROVIDERS: PCP Internal Medicine; Visit Provider Physician Assistant
DX: Z13.9 Encounter for screening, unspecified (principal); K13.79 Other lesions of oral mucosa

== ENCOUNTER → 2024-12-04 08:01 | Outpatient (BNVA) | payer BC, SELFPAY | PROVIDERS: PCP Internal Medicine | DX: K13.79 Other lesions of oral mucosa (principal) | CPT/HCPCS: 87880 ==

== ENCOUNTER 2024-12-05 08:27 | Outpatient (REF) | payer BC, SELFPAY | END 2024-12-05 08:28 | disposition home or self-care (01) | LOC: HO.MAMMO 08:27 | PROVIDERS: PCP Internal Medicine; Visit Provider Internal Medicine | DX: Z12.31 Encounter for screening mammogram for malignant neoplasm of breast (principal) | CPT/HCPCS: 77063; 77067 ==

== ENCOUNTER → 2024-12-05 08:45 | Outpatient (BNV) | payer BC, SELFPAY | PROVIDERS: PCP Internal Medicine; Visit Provider Internal Medicine | DX: Z12.31 Encounter for screening mammogram for malignant neoplasm of breast (principal) | CPT/HCPCS: 77063; 77067 ==

== ENCOUNTER 2025-02-11 06:11 | Outpatient (REF) | payer MEDICARE, SELFPAY ==
[2025-02-11 10:03] LABS: MANUAL DIFF FLAG NO
[2025-02-11 10:11] LABS: Basophils Percent Auto 0.7 % (0-2); Eosinophils Absolute Auto 0.2 X10*3/uL (0.0-0.4); Eosinophils Percent Auto 2.7 % (0-4); Hematocrit 39.7 % (37.0-47.0); Hemoglobin 13.5 g/dl (12.0-16.0); Imm Gran Abs Auto 0.02 X10*3/uL (0.00-0.03); Imm Gran Pct Auto 0.4 % (0.0-0.4); Lymphocytes Absolute Auto 1.8 X10*3/uL (1.2-4.9); Lymphocytes Percent Auto 32.7 % (20-40); Mean Corpuscular Hemoglobin 32.7 pg (27.0-33.0); Mean Corpuscular Volume 96.1 fL (80.0-98.0); Mean Platelet Volume 9.8 fL (9.4-12.3); Monocytes Absolute Auto 0.4 X10*3/uL (0.1-1.2); Monocytes Percent Auto 7.8 % (2-11); Neutrophils Absolute Auto 3.1 x10*3/uL (2.0-8.3); Neutrophils Percent Auto 55.7 % (45-73); Platelet Count 270 X10*3/uL (160-400); Red Blood Count 4.13 X10*6/uL (4.20-5.50); Red Cell Distribution Width 12.5 % (11.0-16.0); White Blood Count 5.5 X10*3/uL (4.8-10.8)
[2025-02-11 10:35] LABS: Estimated Average Glucose 163 mg/dL; Hemoglobin A1C 200.4986 umol/L; Hemoglobin A1c % 7.3 % (<6.0); Total Hemoglobin (HGBA1C) 3580.8886 umol/L
[2025-02-11 10:44] LABS: Alanine Aminotransferase 26 U/L (0-31); Albumin Level 4.1 g/dL (3.5-5.0); Alkaline Phosphatase 78 U/L (39-117); Anion Gap 11 (12-20); Aspartate Amino Transferase 23 U/L (5-31); Bilirubin Total 0.2 mg/dL (0.0-1.0); Blood Urea Nitrogen 14 mg/dL (9-16); Carbon Dioxide 25 mmol/L (22-29); Chloride 107 mmol/L (96-108); Estimated Glomerular Filt Rate > 60; Glucose Random 211 mg/dL (60-115); Potassium 4.6 mmol/L (3.3-5.1); Sodium 138 mmol/L (135-145); Total Protein 6.5 g/dL (6.5-8.0)
== END 2025-02-11 06:12 | disposition home or self-care (01) ==
LOC: HO.HMGCLDS 06:11
PROVIDERS: PCP Internal Medicine; Visit Provider Internal Medicine
DX: F33.0 Major depressive disorder, recurrent, mild (principal); F41.1 Generalized anxiety disorder; E11.9 Type 2 diabetes mellitus without complications; E55.9 Vitamin D deficiency, unspecified; Z72.0 Tobacco use; R49.0 Dysphonia; E78.9 Disorder of lipoprotein metabolism, unspecified; I10 Essential (primary) hypertension
CPT/HCPCS: 36415; 80053; 83036; 85025

== ENCOUNTER 2025-02-12 08:21 | Outpatient (AMB) | payer BC, SELFPAY ==
[2025-02-12 08:34] VITALS: BP 120/82; PULSE 102; RESP 20; O2SAT 97; BMI 25.7
--- NOTE | 2025-02-12 08:34 | MHC.PC.OV ---
Vital Signs 02/12/25 08:34 Height 5 ft 3 in Weight 145 lb BMI 25.7 BP 120/82 Blood Pressure Location Lt brachial Position Sitting Respiration 20 Pulse 102 H Pulse Source Pulse Oximeter Pulse Oximetry (%) 97 Oxygen Delivery Method Room Air Intake Visit Reasons: 3.5 months f/up Allergies No Known Allergies Allergy (Verified 02/12/25 08:35) Medication List - Last Reconciled 02/12/25 by Gemini Canas MD cholecalciferol (vitamin D3) 50 mcg PO DAILY 90 days glipizide 5 mg PO DAILY lisinopril 20 mg PO DAILY lorazepam 1 mg PO DAILY PRN Magic Mouthwash Diphen/Lido/Antacid 1:1:1 5 mL PO Q6-8H sertraline 25 mg PO DAILY simvastatin 40 mg PO DAILY 90 days Tobacco use date assessed: 02/12/25 Fall risk assessment: No Falls in past year Last assessed Fall Risk: 02/12/25 Dental Screening Dental Screen Date: 10/29/24 HPI 3.5 months f/up HPI Details History - The patient is a 64-year-old female presenting with diabetes management follow-up. - The patient reported a recent A1c result of 7.3%, indicating improvement from a previous measurement of 7.7%. The decrease suggests better glycemic control, which is discussed as an acceptable range by the patient and myself. - The patient strictly avoids sweets and consumes bread in moderation, which might contribute to the lowering of A1c levels. - Denied experiences of hypoglycemic episodes since maintaining the current medication regimen. - Reported stable kidney function and normal complete blood counts from recent laboratory evaluations. - The patient follows a regimen of glipizide 5 mg, lisinopril 20 mg, lorazepam, sertraline 25 mg, and simvastatin 40 mg, which are managing her conditions of Type 2 diabetes mellitus, hypertension, hyperlipidemia, anxiety, and depression. - The patient's past cholesterol levels in October were within normal limits, and liver enzymes are reported as unremarkable. - There is a recurrence of weight fluctuations; however, weight remains stable compared to July of the previous year. Problem List - Type 2 Diabetes Mellitus - Hypertension - Hyperlipidemia - Anxiety - Depression Patient Instructions - Continue current medication regimen without adjustments. - Maintain dietary practices, specifically the moderation of bread and avoidance of sweets. - Return for laboratory evaluations every four months to monitor kidney function, blood glucose, and other relevant parameters. - Ensure fasting status before the next scheduled lab testing. - Contact if experiencing any side effects from medications or if symptoms of high or low blood sugar occur. Review of Systems - General: No fever no chills - Neurological: No headaches no dizziness - Ear nose throat: No sore throat no hearing difficulty no ear pain - Cardiovascular: No syncope, no chest pain, no palpitations - Gastrointestinal: No nausea vomiting or diarrhea - Endocrine: No polyuria polydipsia no heat intolerance - Genitourinary: No dysuria , no blood in urine Physical Exam General: No acute distress HEENT: No acute findings Neck: Supple Respiratory system: Able to talk in full sentences, no audible wheeze, no shortness of breath Cardiovascular: S1-S2 regular in rate and rhythm Gastrointestinal: No pain, no nausea, vomiting, or belly pain Extremities: No new findings, no ankle swelling MAT ROLLER: Alert awake oriented x3 motor sensory intact Skin: Normal turgor PFSH Medical History High cholesterol Hypertension Surgical History History of hysterectomy History of section History of foot surgery Family History Father HTN (hypertension) Mother HTN (hypertension) Diabetes mellitus Depression Daughter HTN (hypertension) Son No problems noted. Sister No problems noted. Sister No problems noted. Sister No problems noted. Maternal Grandmother Unknown family medical history Maternal Grandfather Unknown family medical history Paternal Grandmother Unknown family medical history Other Substance use disorder Social History Housing: House Alcohol intake: current Alcohol intake frequency: a few times a week Patient Tobacco Use Status: Current someday Tobacco user Tobacco use type: Cigarette Cigarettes Per Day: 2 Years Smoked: 30 e-Cigarette/Vaping Use: Never Used service: No Current occupational status: employed Sexual orientation: Straight/Heterosexual Gender identity: Female Cognitive needs: No Hearing needs: No Vision needs: Yes Questionnaire PHQ-9 Over the last 2 weeks, how often have you been bothered by any of the following problems? 1. Little interest or pleasure in doing things: not at all 2. Feeling down, depressed, or hopeless: not at all 3. Trouble falling or staying asleep, or sleeping too much: not at all 4. Feeling tired or having little energy: not at all 5. Poor appetite or overeating: not at all 6. Feeling bad about yourself - or that you are a failure or have let yourself or your family down: not at all 7. Trouble concentrating on things, such as reading the newspaper or watching television: not at all 8. Moving or speaking so slowly that other people could have noticed. Or the opposite - being so fidgety or restless that you have been moving around a lot more than usual: not at all 9. Thoughts that you would be better off or of hurting yourself in some way: not at all Total score: 0 Depression Screening Interpretation: Negative Depression Screening Done: Yes 31889 - PHQ-9 Billing: Yes Source: Developed by Drs. Gerald uBtler, Viola Miles, Kain Funez and colleagues, with an educational mratir from [employer]. Thrive Questionnaire Date Thrive assessed: 10/18/23 PAMELA-7 AMB Questionnaire PAMELA-7 Date PAMELA - 7 assessed: 10/18/23 Source: Developed by Drs. Gerald Butler, Viola Miles, Kain Funez and colleagues, with an educational martir from [employer]. Physical exam (Primary Care) Vital Signs: Last Vital Signs Pulse 102 H 02/12/25 08:34 Resp 20 02/12/25 08:34 BP 120/82 02/12/25 08:34 Pulse Ox 97 02/12/25 08:34 Oxygen Delivery Method Room Air 02/12/25 08:34 BMI result Body Mass Index 25.7 Tobacco/Smoking Status: Tobacco use Status Tobacco use date assessed 02/12/25 02/12/25 08:37 Patient Tobacco Use Status Current someday Tobacco 02/12/25 08:37 Tobacco use type Cigarette 02/12/25 08:37 e-Cigarette/Vaping Use Never Used 02/12/25 08:37 PHQ-9: PHQ-9 Score PHQ-9: Total score 0 02/12/25 08:50 Depression Screening Interpretation: Negative Thrive Assessment: Date of Thrive Assessment Date Thrive assessed 10/18/23 02/12/25 08:37 Coding Level of Care Code Est Pt Level 4 (36684) Diagnoses Hypertension, essential I10 Lipid disorder E78.9 Controlled type 2 diabetes mellitus without complication, without long-term current use of insulin E11.9 Diabetes mellitus complication status: without complication 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: without marine oil terminal 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 use Tobacco abuse Z72.0 Hoarseness of voice R49.0 Vitamin D deficiency E55.9 Anxiety, generalized F41.1 Mild episode of recurrent major depressive disorder F33.0 Active/Remission status: currently active Major depression episode severity: mild Additional Codes PHQ-9 - 62747 - PHQ-9 Billing: Yes ([id number]) Assessment & Plan Assessment & Plan (1) Hypertension, essential: Code(s): I10 - Essential (primary) hypertension Category: Medical (2) Lipid disorder: Code(s): E78.9 - Disorder of lipoprotein metabolism, unspecified Category: Medical (3) Diabetes type 2, controlled: Code(s): E11.9 - Type 2 diabetes mellitus without complications Category: Medical Qualifiers: Diabetes mellitus complication status: without complication 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: without marine oil terminal 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 use Qualified Code(s): E11.9 - Type 2 diabetes mellitus without complications (4) Tobacco abuse: Code(s): Z72.0 - Tobacco use Category: Medical (5) Hoarseness of voice: Code(s): R49.0 - Dysphonia Category: Medical (6) Vitamin D deficiency: Code(s): E55.9 - Vitamin D deficiency, unspecified Category: Medical (7) Anxiety, generalized: Code(s): F41.1 - Generalized anxiety disorder Category: Medical (8) Major depression, recurrent: Code(s): F33.9 - Major depressive disorder, recurrent, unspecified Category: Medical Qualifiers: Active/Remission status: currently active Major depression episode severity: mild Qualified Code(s): F33.0 - Major depressive disorder, recurrent, mild Plan History - The patient is a 64-year-old female presenting with diabetes management follow-up. - The patient reported a recent A1c result of 7.3%, indicating improvement from a previous measurement of 7.7%. The decrease suggests better glycemic control, which is discussed as an acceptable range by the patient and myself. - The patient strictly avoids sweets and consumes bread in moderation, which might contribute to the lowering of A1c levels. - Denied experiences of hypoglycemic episodes since maintaining the current medication regimen. - Reported stable kidney function and normal complete blood counts from recent laboratory evaluations. - The patient follows a regimen of glipizide 5 mg, lisinopril 20 mg, lorazepam, sertraline 25 mg, and simvastatin 40 mg, which are managing her conditions of Type 2 diabetes mellitus, hypertension, hyperlipidemia, anxiety, and depression. - The patient's past cholesterol levels in October were within normal limits, and liver enzymes are reported as unremarkable. - There is a recurrence of weight fluctuations; however, weight remains stable compared to July of the previous year. Problem List - Type 2 Diabetes Mellitus - Hypertension - Hyperlipidemia - Anxiety - Depression Patient Instructions - Continue current medication regimen without adjustments. - Maintain dietary practices, specifically the moderation of bread and avoidance of sweets. - Return for laboratory evaluations every four months to monitor kidney function, blood glucose, and other relevant parameters. - Ensure fasting status before the next scheduled lab testing. - Contact if experiencing any side effects from medications or if symptoms of high or low blood sugar occur. Orders: Orders Comprehensive [place]. Panel Fast 3 Months E11.9 - Type 2 diabetes mellitus without complications, E78.9 - Disorder of lipoprotein metabolism, unspecified, I10 - Essential (primary) hypertension Lipid Panel 3 Months E11.9 - Type 2 diabetes mellitus without complications, E78.9 - Disorder of lipoprotein metabolism, unspecified, I10 - Essential (primary) hypertension Hemoglobin A1c 3 Months E11.9 - Type 2 diabetes mellitus without complications, E78.9 - Disorder of lipoprotein metabolism, unspecified, I10 - Essential (primary) hypertension
== END 2025-02-12 08:48 | disposition home or self-care (01) ==
LOC: HO.HMCC 08:22
PROVIDERS: PCP Internal Medicine; Visit Provider Internal Medicine
DX: I10 Essential (primary) hypertension (principal); E78.9 Disorder of lipoprotein metabolism, unspecified; E11.9 Type 2 diabetes mellitus without complications; Z72.0 Tobacco use; R49.0 Dysphonia; E55.9 Vitamin D deficiency, unspecified; F41.1 Generalized anxiety disorder; F33.0 Major depressive disorder, recurrent, mild

== ENCOUNTER → 2025-02-12 08:21 | Outpatient (BNVA) | payer MEDICARE, SELFPAY | PROVIDERS: PCP Internal Medicine; Visit Provider Internal Medicine | DX: I10 Essential (primary) hypertension (principal); E78.9 Disorder of lipoprotein metabolism, unspecified; R49.0 Dysphonia; E55.9 Vitamin D deficiency, unspecified; F41.1 Generalized anxiety disorder; F33.0 Major depressive disorder, recurrent, mild; E11.9 Type 2 diabetes mellitus without complications; Z72.0 Tobacco use | CPT/HCPCS: 96127 ==

== ENCOUNTER 2025-04-16 09:55 | Outpatient (AMB) | payer MEDICARE, SELFPAY ==
[2025-04-16 10:00] VITALS: BP 124/76; PULSE 96; TEMP 36.8; O2SAT 97; BMI 25.2
--- NOTE | 2025-04-16 10:00 | MHC.OFFWIV ---
Intake Vital Signs 04/16/25 10:00 Height 5 ft 3 in Weight 142 lb BMI 25.2 BP 124/76 Blood Pressure Location Lt brachial Position Sitting Pulse 96 Pulse Source Pulse Oximeter Temp 98.2 F Temp Source Oral Pulse Oximetry (%) 97 Oxygen Delivery Method Room Air Intake Visit Reasons: EP Knee pain Intake Note: presents with left knee pain, redness. denies injury Patient Tobacco Use Status: Current someday Tobacco user Allergies No Known Allergies Allergy (Verified 04/16/25 10:01) Do you need a note to return to daycare/school/sports/work: No HPI HPI Comments History of Present Illness Details Patient is a 64-year-old female complaining of left knee pain for 3 days. She denies any injury, trauma or repetitive use of the knee. She tells me it was red but today it is not red. She has been taking 600 mg of Advil which was working but now does not seem to be helping the pain. She denies any swelling and has not tried using any ice. She denies any fevers, recent tick bites or spending a lot of time gardening or in the [place]. She does have a history of arthritis but does not take any daily medication for it. She is able to ambulate on it. [facility] Medical History High cholesterol Hypertension Surgical History History of hysterectomy History of section History of foot surgery Family History Father HTN (hypertension) Mother HTN (hypertension) Diabetes mellitus Depression Daughter HTN (hypertension) Son No problems noted. Sister No problems noted. Sister No problems noted. Sister No problems noted. Maternal Grandmother Unknown family medical history Maternal Grandfather Unknown family medical history Paternal Grandmother Unknown family medical history Other Substance use disorder Social History Housing: House Alcohol intake: current Alcohol intake frequency: a few times a week Patient Tobacco Use Status: Current someday Tobacco user Tobacco use type: Cigarette Cigarettes Per Day: 2 Years Smoked: 30 e-Cigarette/Vaping Use: Never Used service: No Current occupational status: employed Sexual orientation: Straight/Heterosexual Gender identity: Female Cognitive needs: No Hearing needs: No Vision needs: Yes Review of Systems Const All systems reviewed & are unremarkable except as noted in HPI and below Physical Exam Vital Signs: Last Vital Signs Temp 98.2 F 04/16/25 10:00 Pulse 107 H 04/16/25 10:00 BP 124/76 04/16/25 10:00 Pulse Ox 97 04/16/25 10:00 Oxygen Delivery Method Room Air 04/16/25 10:00 BMI result Body Mass Index 25.2 Const General: cooperative, healthy appearing, comfortable and no acute distress Orientation/consciousness: patient oriented x3 Limitations: no limitations HEENT Head: Yes normal to inspection Resp Effort & Inspection: normal respiratory effort and able to speak in complete sentences Neuro General: patient oriented x3 Extrem General: Yes normal to inspection Left lower extremity: knee Details: normal to inspection, normal ROM and knee ligament exam normal; no tenderness, no swelling, no abrasions, no lacerations, no ecchymosis and no deformity and lower leg Details: normal to inspection and no edema; no erythema, no tenderness, no localized swelling and no deformity Assessment & Plan Assessment & Plan (1) Arthritis of knee, left: Code(s): M17.12 - Unilateral primary osteoarthritis, left knee Plan: Knee exam was completely normal, she has no injury and no recent tick bites, fevers and does not spent any time in the [place] so this is less likely Lyme disease. It is most likely arthritis so I did send some diclofenac for her to trial. I told her she did develop any fevers or if the pain gets worse, she should return to the clinic. Medications: New diclofenac sodium 50 mg PO Q12H PRN 20 tabs 0RF pain Coding Level of Care Code Est Pt Level 3 (39563) Diagnoses Arthritis of knee, left M17.12
--- OUTSIDE RECORDS SUMMARY | 2025-04-16 10:18 | XMS_ITS | Patient Health Record ---
Author Organization [facility] Carolelarisa Sealsley Address [address] [address] Care Team Providers Care Cook Dinner Name Role Phone Missael ALEJANDRO, Asma Primary Care Provider Daniel Cardoso Unavailable [phone] Reason For Referral No Information Medications Medication SIG (Take, Route, Fr equency, Duration) Notes Start Date End Date Status Sertraline HCl 100 MG TAKE 1 TABLET BY M OUTH EVERY DAY Oral; Duration: 30 Active Lisinopril 20 MG TK 1 T PO QD Oral; D uration: 30 Active LORazepam 0.5 MG (Schedule IV Drug) T HAYLEY 1 TABLET BY MOUTH TWICE A DAY NEEDED Oral; Duration: 30 Active Simvastatin 10 MG TK 1 T PO QD Oral; D uration: 30 Active Social History Tobacco Use: Social History Observation Description Date Details (start date - stop date) Current Smoker NA - NA Tobacco Use/Smoking Question Answer Notes Are you a: current smoker How often do you smoke cigarettes? every day How many cigarettes a day do you smoke? 6-10 How soon after you wake up d o you smoke your first cigarette? 31-60 minutes Are you interested in quitting? Thinking about q uitting Alcohol Screen Question Answer Notes Did you have a drink contain ing alcohol in the past year? Yes How often did you have a dri nk containing alcohol in the past year? Monthly or less (1 point) How many drinks did you have on a typical day when you were drinking in the past year? 1 or 2 drinks (0 point) How often did you have 6 or more drinks on one occasion in the past year? Never (0 point) Points 1 Interpretation Negative Tobacco use other than smoking: Question Answer Notes Are you an other tobacco user? No Problems Problem Type SNOMED Code ICD Code Onset Dates Problem Status W/U Status Risk Notes Problem Information temporarily unavailable Other hammer toe(s) (acquired), left foot (M20.42) Active confirmed Problem Information temporarily unavailable Bunion, left foot (M21.612) Active confirmed Plan Of Treatment No Information Insurance Providers Payer Name Payer Address Payer Phone Subscriber Number Group Number Insured Name Patient Relationship to Insured Coverage Start Date Coverage End Date [facility] [address] [place] [address] [phone] [id number] Alicia Rios Self - patient is the insured Medical (General) History Medical History History ICD Code High blood pressure Cholesterol Anxiety Surgical History Surgery Date(Month/Year) bunionectomy hammer toe
== END 2025-04-16 10:37 | disposition home or self-care (01) ==
PROVIDERS: PCP Internal Medicine; Visit Provider Physician Assistant
DX: M17.12 Unilateral primary osteoarthritis, left knee (principal)

== ENCOUNTER → 2025-04-16 09:55 | Outpatient (BNVA) | payer MEDICARE, SELFPAY | PROVIDERS: PCP Internal Medicine; Visit Provider Physician Assistant | DX: M17.12 Unilateral primary osteoarthritis, left knee (principal) | CPT/HCPCS: 99212 ==

== ENCOUNTER 2025-04-28 07:48 | Outpatient (AMB) | payer MEDICARE, SELFPAY ==
--- OUTSIDE RECORDS SUMMARY | 2025-04-28 07:50 | XMS_ITS | Patient Health Record ---
Author Organization [facility] Carolelarisa Sealsley Address [address] [place] [address] Care Team Providers Care Home Care Administrator Name Role Phone Missael ALEJANDRO, Asma Primary Care Provider Daniel Cardoso Unavailable [phone] Reason For Referral No Information Medications Medication [...] Problem Status W/U Status Risk Notes Problem Acquired hammer toe of left foot ([id number]) Other hammer toe(s) (acquired), left foot (M20.42) Active confirmed Problem Bunion, left foot (M21.612) Active confirmed Plan Of Treatment No Information Insurance Providers Payer Name Payer Address Payer Phone Subscriber Number Group Number Insured Name Patient Relationship to Insured Coverage Start Date Coverage End Date [facility] [address] [place] [address] [id number] Alicia Rios Self - patient is the insured Medical (General) History Medical History History ICD Code High blood pressure Cholesterol Anxiety Surgical History Surgery Date(Month/Year) bunionectomy hammer toe
[2025-04-28 08:02] VITALS: BP 120/76; PULSE 113; TEMP 36.9; O2SAT 98; BMI 25.2
--- NOTE | 2025-04-28 08:02 | AM.OFFWIN_ITS ---
Intake Vital Signs 04/28/25 08:02 Height 5 ft 3 in Weight 142 lb BMI 25.2 BP 120/76 Blood Pressure Location Lt brachial Position Sitting Pulse 113 H Pulse Source Pulse Oximeter Temp 98.4 F Temp Source Oral Pulse Oximetry (%) 98 Oxygen Delivery Method Room Air Intake Visit Reasons: EP LT knee pain Intake Note: presents with unresolving left knee pain Patient Tobacco Use Status: Current someday Tobacco user Allergies No Known Allergies Allergy (Verified 04/28/25 08:08) Do you need a note to return to daycare/school/sports/work: No HPI HPI Comments History of Present Illness Details 64 y/o Female [facility] c/o Chronic on going left Knee pain. She was recently seen here for similar concern and prescribed Diclofenac Tabs. Reports taking NSAIDs and Acetaminophen with no relief. Denies Trauma or Injury to the knee. [facility] Medical History High cholesterol Hypertension Surgical History History of hysterectomy History of section History of foot surgery Family History Father HTN (hypertension) Mother HTN (hypertension) Diabetes mellitus Depression Daughter HTN (hypertension) Son No problems noted. Sister No problems noted. Sister No problems noted. Sister No problems noted. Maternal Grandmother Unknown family medical history Maternal Grandfather Unknown family medical history Paternal Grandmother Unknown family medical history Other Substance use disorder Social History Housing: House Alcohol intake: current Alcohol intake frequency: a few times a week Patient Tobacco Use Status: Current someday Tobacco user Tobacco use type: Cigarette Cigarettes Per Day: 2 Years Smoked: 30 e-Cigarette/Vaping Use: Never Used service: No Current occupational status: employed Sexual orientation: Straight/Heterosexual Gender identity: Female Cognitive needs: No Hearing needs: No Vision needs: Yes Review of Systems Const All systems reviewed & are unremarkable except as noted in HPI and below Physical Exam Vital Signs: Last Vital Signs Temp 98.4 F 04/28/25 08:02 Pulse 113 H 04/28/25 08:02 BP 120/76 04/28/25 08:02 Pulse Ox 98 07/14/25 08:02 Oxygen Delivery Method Room Air 04/28/25 08:02 BMI result Body Mass Index 25.2 Const General: no acute distress Nutritional Appearance: well nourished Orientation/consciousness: patient oriented x3 Neuro General: patient oriented x3, gait normal and moves all extremities Extrem Left lower extremity: knee Details: normal to inspection, tenderness Location: of the patella and normal ROM; no swelling, no ecchymosis and no crepitus Psych Speech and movement: Normal speech and movement present Assessment & Plan Assessment & Plan (1) Arthritis of knee, left: Code(s): M17.12 - Unilateral primary osteoarthritis, left knee Plan: Ordered Xray Knee Ordered Prednisone Ordered Physical therapy. Ice/Hot Rest. Orders: Orders PT Evaluation and Treatment Today M17.12 - Unilateral primary osteoarthritis, left knee Medications: New prednisone 20 mg PO DAILY 5 tabs 0RF M17.12 - Unilateral primary osteoarthritis, left knee Coding Level of Care Code Est Pt Level 4 (07574) Diagnoses Arthritis of knee, left M17.12 Time Spent (min) 20
== END 2025-04-28 08:39 | disposition home or self-care (01) ==
PROVIDERS: PCP Internal Medicine; Visit Provider Nurse Practitioner Family
DX: M17.12 Unilateral primary osteoarthritis, left knee (principal)

== ENCOUNTER 2025-04-28 07:48 | Outpatient (REF) | payer MEDICARE, SELFPAY ==
--- NOTE | ~2025-04-28 | XR_ITS ---
EXAMINATION: XR KNEE 4 OR MORE VIEWS LEFT HISTORY: M17.12 - Unilateral primary osteoarthritis, left knee COMPARISON: There are no prior studies available for comparison. FINDINGS: Four views of the left knee are submitted. Osseous mineralization is normal. There is no fracture or dislocation. The joint spaces are preserved. The soft tissues are unremarkable. There is no joint effusion. XR/XR knee LT 4V IMPRESSION: Unremarkable examination of the left knee. Electronically signed by: Gerald Ruiz MD 04/28/2025 09:08 AM EDT
== END 2025-04-28 07:49 | disposition home or self-care (01) ==
LOC: HO.HMGCX 07:48
PROVIDERS: PCP Internal Medicine; Visit Provider Nurse Practitioner Family
DX: M17.12 Unilateral primary osteoarthritis, left knee (principal)
CPT/HCPCS: 73564; 99212

== ENCOUNTER → 2025-04-28 08:34 | Outpatient (BNV) | payer MEDICARE, SELFPAY | PROVIDERS: PCP Internal Medicine; Visit Provider Radiology Diagnostic Radiology | DX: M17.12 Unilateral primary osteoarthritis, left knee (principal) | CPT/HCPCS: 73564 ==

== ENCOUNTER 2025-05-09 08:59 | Outpatient (AMB) | payer MEDICARE, SELFPAY ==
[2025-05-09 09:10] VITALS: BP 118/80; PULSE 110; TEMP 36.7; O2SAT 97; BMI 25.2
--- NOTE | 2025-05-09 09:10 | A.OFFPC_ITS ---
Vital Signs 05/09/25 09:10 Height 5 ft 3 in Weight 142 lb BMI 25.2 BP 118/80 Blood Pressure Location Lt brachial Position Sitting Pulse 110 H Pulse Source Pulse Oximeter Temp 98.1 F Temp Source Oral Pulse Oximetry (%) 97 Intake Visit Reasons: knee pain Cesspool Cleaner Required: No Accompanied by: Self / Same As Patient Allergies No Known Allergies Allergy (Verified 05/09/25 09:10) Medication List - Last Reconciled 05/09/25 by Gemini Canas MD cholecalciferol (vitamin D3) 50 mcg PO DAILY 90 days glipizide 5 mg PO DAILY lisinopril 20 mg PO DAILY lorazepam 1 mg PO DAILY PRN Magic Mouthwash Diphen/Lido/Antacid 1:1:1 5 mL PO Q6-8H sertraline 25 mg PO DAILY simvastatin 40 mg PO DAILY 90 days Tobacco use date assessed: 02/12/25 Fall risk assessment: No Falls in past year Last assessed Fall Risk: 05/09/25 Dental Screening Dental Screen Date: 10/29/24 HPI knee pain HPI Details History - The patient is a 64-year-old female wi th a history of diabetes, hypertension, hyperlipidemia, generalized anxiety disorder seeing psychiatrist, depression, osteoarthritis hands presenting with knee pain. - Reports left knee pain persisting for one month, initially starting without any inciting event. - The pain has improved somewhat but con tinues to be bothersome. - Prior x-ray of the left knee was unrem arkable with no signs of arthritis or fracture noted. - The patient is seeking a referral for a cortisone injection to manage the pain . Medical History: - Diabetes Mellitus Type 2 - Essential Hypertension - Hyperlipidemia - Generalized Anxiety Disorder - Major Depressive Disorder - Osteoarthritis of hands - Carpal Tunnel Syndrome (previously man aged with cortisone injections in hands) Medications: - Glipizide 5 mg for diabetes mellitus - Lisinopril 20 mg for hypertension - Lorazepam for anxiety - Sertraline 25 mg for depression - Simvastatin 40 mg for hyperlipidemia Social History: - Resides in [place] - History of receiving cortisone injecti ons in hands for carpal tunnel syndrome Diagnostic Results: - Labs: Hemoglobin A1c was 7.3 in January 8.2 today - Imaging: Recent left knee x-ray unrema rkable, no fracture or arthritis observed Problem List - Diabetes Mellitus Type 2 - Essential Hypertension - Hyperlipidemia - Anxiety - Depression - Knee Pain, unspecified origin - Osteoarthritis Patient Instructions - Await call from orthopedic department to schedule cortisone injection - increase glipizide 5 mg in the morning and half at night, and start monitoring fasting sugar - Return for follow-up appointment in for a physical exam - Follow-up with psychiatrist in May for management of anxiety medication Review of Systems - General: No fever no chills - Neurological: No headaches no dizziness - Ear nose throat: No sore throat no hearing difficulty no ear pain - Cardiovascular: No syncope, no chest pain, no palpitations - Gastrointestinal: No nausea vomiting or diarrhea - Endocrine: No polyuria polydipsia no heat intolerance - Genitourinary: No dysuria , no blood in urine Physical Exam General: No acute distress HEENT: No acute findings Neck: Supple Respiratory system: Able to talk in full sentences, no audible wheeze Cardiovascular: S1-S2 regular in rate and rhythm Gastrointestinal: No pain Extremities: Left knee pain, possible mild osteoarthritis, range of motion intact generalized discomfort with palpation no swelling TWISTING FRAME FIXER: Alert awake oriented x3 motor sensory intact Skin: Normal turgor PFSH Medical History High cholesterol Hypertension Surgical History History of hysterectomy History of section History of foot surgery Family History Father HTN (hypertension) Mother HTN (hypertension) Diabetes mellitus Depression Daughter HTN (hypertension) Son No problems noted. Sister No problems noted. Sister No problems noted. Sister No problems noted. Maternal Grandmother Unknown family medical history Maternal Grandfather Unknown family medical history Paternal Grandmother Unknown family medical history Other Substance use disorder Social History Housing: House Alcohol intake: current Alcohol intake frequency: a few times a week Patient Tobacco Use Status: Current someday Tobacco user Tobacco use type: Cigarette Cigarettes Per Day: 2 Years Smoked: 30 e-Cigarette/Vaping Use: Never Used service: No Current occupational status: employed Sexual orientation: Straight/Heterosexual Gender identity: Female Cognitive needs: No Hearing needs: No Vision needs: Yes Questionnaire Thrive Questionnaire Date Thrive assessed: 05/09/25 I am a: Patient What is your living situation today?: I have a steady place to live Within the past 12 months, did the food you bought not last and you didn't have the money to get more?: Never true Within the past 12 months, did you worry whether your food would run out before you got money to buy more?: Never true Do you have trouble paying for medicines?: No Do you have trouble getting transportation to medical appointments?: No Do you have trouble paying your heating and electricity bill?: No Do you have trouble taking care of your child, family member or friend?: No Do you have trouble with day-to-day activities such as bathing, preparing meals, shopping, managing finances, etc.?: No Are you currently unemployed and looking for a job?: No Are you interested in more education?: No Please select the resources that you would like help with: None THRIVE Score: 0 AUDIT C Alcohol Use Questionnaire (AUDIT-C) 1. How often do you have a drink containing alcohol?: Monthly or less 2. How many drinks containing alcohol do you have on a typical day when you are drinking?: 1 or 2 3. How often do you have six or more drinks on one occasion?: Never Total Score: 1 PAMELA-7 AMB Questionnaire PAMELA-7 Date PAMELA - 7 assessed: 05/09/25 Feeling nervous, anxious, or on edge: 2 = More than half the days Not being able to stop or control worryin = More than half the days Worrying too much about different things: 2 = More than half the days Trouble relaxin = Not at all Being so restless that it is hard to sit still: 0 = Not at all Becoming easily annoyed or irritable: 0 = Not at all Feeling afraid as if something awful might happen: 1 = Several days Total PAMELA-7 score (0-4 normal; 5-9 mild; 10-14 moderate; 15-21 severe): 7 Source: Developed by Drs. Gerald Butler, Viola Miles, Kain Funez and colleagues, with an educational martir from [employer] PAMELA-7 Assessment Billing PAMELA-7 Assessment Tool: PAMELA-7 Assessment 61983 Physical exam (Primary Care) Vital Signs: Last Vital Signs Temp 98.1 F 07/25/25 09:10 Pulse 110 H 05/09/25 09:10 BP 118/80 05/09/25 09:10 Pulse Ox 97 05/09/25 09:10 BMI result Body Mass Index 25.2 Tobacco/Smoking Status: Tobacco use Status Tobacco use date assessed 02/12/25 05/09/25 09:12 Patient Tobacco Use Status Current someday Tobacco 05/09/25 09:12 Tobacco use type Cigarette 05/09/25 09:12 e-Cigarette/Vaping Use Never Used 05/09/25 09:12 Thrive Assessment: Date of Thrive Assessment Date Thrive assessed 05/09/25 05/09/25 09:12 Results AMB Hemoglobin A1c 2 AMB Hemoglobin A1c 8.2 % Last Edit by Kevin Hall CMA on 05/09/25 09: 35 Results Reviewed Results Reviewed: Laboratory Last Values Hgb A1c (Clinic) 8.2 % (4.0-6.0) H 05/09/25 09:35 Coding Level of Care Code Est Pt Level 4 (48262) Complex EM visit Add On G2211 Diagnoses Arthritis of knee, left M17.12 Acute pain of left knee M25.562 Chronicity: acute Hypertension, essential I10 Lipid disorder E78.9 Diabetes type 2, controlled E11.9 Tobacco abuse Z72.0 Hoarseness of voice R49.0 Vitamin D deficiency E55.9 Anxiety, generalized F41.1 Mild episode of recurrent major depressive disorder F33.0 Active/Remission status: currently active Major depression episode severity: mild Additional Codes PAMELA-7 Assessment Billing - PAMELA-7 Assessment Tool: PAMELA-7 Assessment 58180 ([id number]) Assessment & Plan Assessment & Plan (1) Arthritis of knee, left: Code(s): M17.12 - Unilateral primary osteoarthritis, left knee Category: Medical (2) Knee pain, left: Code(s): M25.562 - Pain in left knee Category: Medical Qualifiers: Chronicity: acute Qualified Code(s): M25.562 - Pain in left knee (3) Hypertension, essential: Code(s): I10 - Essential (primary) hypertension Category: Medical (4) Lipid disorder: Code(s): E78.9 - Disorder of lipoprotein metabolism, unspecified Category: Medical (5) Diabetes type 2, controlled: Code(s): E11.9 - Type 2 diabetes mellitus without complications Category: Medical (6) Tobacco abuse: Code(s): Z72.0 - Tobacco use Category: Medical (7) Hoarseness of voice: Code(s): R49.0 - Dysphonia Category: Medical (8) Vitamin D deficiency: Code(s): E55.9 - Vitamin D deficiency, unspecified Category: Medical (9) Anxiety, generalized: Code(s): F41.1 - Generalized anxiety disorder Category: Medical (10) Major depression, recurrent: Code(s): F33.9 - Major depressive disorder, recurrent, unspecified Category: Medical Qualifiers: Active/Remission status: currently active Major depression episode severity: mild Qualified Code(s): F33.0 - Major depressive disorder, recurrent, mild Plan History - The patient is a 64-year-old female with a history of diabetes, hypertension, hyperlipidemia, generalized anxiety disorder seeing psychiatrist, depression, osteoarthritis hands presenting with knee pain. - Reports left knee pain persisting for one month, initially starting without any inciting event. - The pain has improved somewhat but continues to be bothersome. - Prior x-ray of the left knee was unremarkable with no signs of arthritis or fracture noted. - The patient is seeking a referral for a cortisone injection to manage the pain. Medical History: - Diabetes Mellitus Type 2 - Essential Hypertension - Hyperlipidemia - Generalized Anxiety Disorder - Major Depressive Disorder - Osteoarthritis of hands - Carpal Tunnel Syndrome (previously managed with cortisone injections in hands) Medications: - Glipizide 5 mg for diabetes mellitus - Lisinopril 20 mg for hypertension - Lorazepam for anxiety - Sertraline 25 mg for depression - Simvastatin 40 mg for hyperlipidemia Social History: - Resides in [place] - History of receiving cortisone injections in hands for carpal tunnel syndrome Diagnostic Results: - Labs: Hemoglobin A1c was 7.3 in January 21.2 today - Imaging: Recent left knee x-ray unremarkable, no fracture or arthritis observ ed Problem List - Diabetes Mellitus Type 2 - Essential Hypertension - Hyperlipidemia - Anxiety - Depression - Knee Pain, unspecified origin - Osteoarthritis Patient Instructions - Await call from orthopedic department to schedule cortisone injection - increase glipizide 5 mg in the morning and half at night, and start monitoring fasting sugar - Return for follow-up appointment in July for a physical exam - Follow-up with psychiatrist in May for management of anxiety medication Orders: Orders AMB Hemoglobin A1c Today Z13.9 - Encounter for screening, unspecified Referrals Orthopedics Referral M25.562 - Pain in left knee
--- OUTSIDE RECORDS SUMMARY | 2025-05-09 09:19 | XMS_ITS | Patient Health Record ---
Author Organization [facility] Carolelarisa Sealsley Address [address] [place] [address] Care Team Providers Care Pattern Marker Name Role Phone Missael ALEJANDRO, Asma Primary Care Provider Daniel Cardoso Unavailable [phone] Reason For Referral No Information Medications Medication [...] Problem Acquired hammer toe of left foot ([id number]) Other hammer toe(s) (acquired), left foot (M20.42) Active confirmed Problem Bunion, left foot (M21.612) Active confirmed Plan Of Treatment No Information Insurance Providers Payer Name Payer Address Payer Phone Subscriber Number Group Number Insured Name Patient Relationship to Insured Coverage Start Date Coverage End Date [facility] [address] [place] [address] [id number] Alicia Rios Self - patient is the insured Medical (General) History Medical History History ICD Code High blood pressure Cholesterol Anxiety Surgical History Surgery Date(Month/Year) bunionectomy hammer toe
== END 2025-05-09 09:37 | disposition home or self-care (01) ==
LOC: HO.HMCC 09:00
PROVIDERS: PCP Internal Medicine; Visit Provider Internal Medicine
DX: M17.12 Unilateral primary osteoarthritis, left knee (principal); M25.562 Pain in left knee; E11.9 Type 2 diabetes mellitus without complications; I10 Essential (primary) hypertension; E78.9 Disorder of lipoprotein metabolism, unspecified; Z72.0 Tobacco use; R49.0 Dysphonia; E55.9 Vitamin D deficiency, unspecified; F41.1 Generalized anxiety disorder; F33.0 Major depressive disorder, recurrent, mild

== ENCOUNTER → 2025-05-09 08:59 | Outpatient (BNVA) | payer MEDICARE, SELFPAY | PROVIDERS: PCP Internal Medicine; Visit Provider Internal Medicine | DX: M17.12 Unilateral primary osteoarthritis, left knee (principal); M25.562 Pain in left knee; I10 Essential (primary) hypertension; E78.9 Disorder of lipoprotein metabolism, unspecified; E11.9 Type 2 diabetes mellitus without complications; E55.9 Vitamin D deficiency, unspecified; R49.0 Dysphonia; F41.1 Generalized anxiety disorder; F33.0 Major depressive disorder, recurrent, mild; F17.200 Nicotine dependence, unspecified, uncomplicated; Z71.6 Tobacco abuse counseling | CPT/HCPCS: 83036; 96127; 99212 ==

== ENCOUNTER 2025-09-15 07:29 | Outpatient (AMB) | payer MEDICARE, SELFPAY ==
--- OUTSIDE RECORDS SUMMARY | 2025-09-15 07:31 | XMS_ITS | Patient Health Record ---
Author Organization [facility] Carolelarisa Sealsley Address [address] [place] [address] Care Team Providers Care X Ray Consultant Name Role Phone Missael ALEJANDRO, Asma Primary Care Provider Daniel Cardoso Unavailable [phone] Reason For Referral No Information Medications Medication [...] Problem Acquired hammer toe of left foot ([id number]) Other hammer toe(s) (acquired) , left foot (M20.42) Active confirmed Problem Swelling of first metatarsophalangeal joint of hallux ([id number]) Bunion, left foot (M21.612) Active confirmed Plan Of Treatment No Information Insurance Providers Payer Name Payer Address Payer Phone Subscriber Number Group Number Insured Name Patient Relationship to Insured Coverage Start Date Coverage End Date [facility] [address] [place] [address] [id number] Alicia Rios Self - patient is the insured Medical (General) History Medical History History ICD Code High blood pressure Cholesterol Anxiety Surgical History Surgery Date(Month/Year) bunionectomy hammer toe
[2025-09-15 07:32] VITALS: BP 142/90; PULSE 116; RESP 18; TEMP 36.8; O2SAT 98; BMI 24.3
--- NOTE | 2025-09-15 07:32 | AM.OFFWIN_ITS ---
Intake Vital Signs 09/15/25 07:32 Height 5 ft 3 in Weight 137 lb BMI 24.3 BP 142/90 H Blood Pressure Location Rt brachial Position Sitting Respiration 18 Pulse 116 H Pulse Source Pulse Oximeter Temp 98.3 F Temp Source Oral Pulse Oximetry (%) 98 Oxygen Delivery Method Room Air Intake Visit Reasons: EP ears hurt wheezing sore throat Intake Note: Patient presents c/o cough, wheezing x1 week. Patient Tobacco Use Status: Current someday Tobacco user Allergies No Known Allergies Allergy (Verified 09/15/25 07:33) Medication List - Last Reconciled 09/15/25 by Mirella Montes, MICHAEL alcohol swabs (Alcohol Pads) 1 pad topical DAILY azithromycin 500 mg PO DAILY 3 days benzonatate 200 mg (2 x 100 mg) PO BID blood sugar diagnostic (Contour Plus Test Strip) check blood sugar once daily as directed blood-glucose meter (Contour Plus Blue Meter) Check blood sugar once daily as directed cholecalciferol (vitamin D3) 50 mcg PO DAILY 90 days glipizide 5 mg PO DAILY lancets (Accu-Chek Softclix Lancets) Check blood sugar once daily as directed lisinopril 20 mg PO DAILY lorazepam 1 mg PO DAILY PRN Magic Mouthwash Diphen/Lido/Antacid 1:1:1 5 mL PO Q6-8H sertraline 25 mg PO DAILY simvastatin 40 mg PO DAILY 90 days HPI HPI Comments History of Present Illness Details 64 y/o female presents to the walk-in [facility] with one week of upper respiratory symptoms. She reports persistent cough, wheezing, and shortness of breath. She denies fever, chills, nausea, vomiting, or recent sick contacts. No reports of chest pain, hemoptysis, or recent travel. No noted triggers or exposures. [facility] Medical History High cholesterol Hypertension Surgical History History of hysterectomy History of section History of foot surgery Family History Father HTN (hypertension) Mother HTN (hypertension) Diabetes mellitus Depression Daughter HTN (hypertension) Son No problems noted. Sister No problems noted. Sister No problems noted. Sister No problems noted. Maternal Grandmother Unknown family medical history Maternal Grandfather Unknown family medical history Paternal Grandmother Unknown family medical history Other Substance use disorder Social History Housing: House Alcohol intake: current Alcohol intake frequency: a few times a week Patient Tobacco Use Status: Current someday Tobacco user Tobacco use type: Cigarette Cigarettes Per Day: 2 Years Smoked: 30 e-Cigarette/Vaping Use: Never Used service: No Current occupational status: employed Sexual orientation: Straight/Heterosexual Gender identity: Female Cognitive needs: No Hearing needs: No Vision needs: Yes Review of Systems Const All systems reviewed & are unremarkable except as noted in HPI and below Physical Exam Vital Signs: Last Vital Signs Temp 98.3 F 09/15/25 07:32 Pulse 116 H 09/15/25 07:32 Resp 18 09/15/25 07:32 BP 142/90 H 09/15/25 07:32 Pulse Ox 98 09/15/25 07:32 Oxygen Delivery Method Room Air 09/15/25 07:32 BMI result Body Mass Index 24.3 Const General: no acute distress Nutritional Appearance: well nourished Orientation/consciousness: patient oriented x3 HEENT Head: Yes normocephalic Ears: external ears normal and TM abnormal with fluid behind the TM bilateral General nose exam: Nasal discharge present Face and sinus: Yes sinuses nontender Mouth: moist mucous membranes Throat: Yes uvula midline Resp Effort & Inspection: normal respiratory effort Auscultation: clear to auscultation bilaterally, no crackles, no rales, no rhonchi and no wheezes Cardio Heart sounds: S1 normal heart sound present and S2 normal heart sound present Neuro General: patient oriented x3 Assessment & Plan Assessment & Plan (1) Cough: Code(s): R05 - Cough Qualifiers: Cough type: subacute Qualified Code(s): R05.2 - Subacute cough Plan: Hydration, rest, humidifier, steam inhalation, OTC cough remedies as tolerated. Ordered Z-pack for 3 days and Benzonatate. Return precautions: worsening SOB, high fever, chest pain, hemoptysis, inability to keep fluids, or symptoms >10?14 days. Medications: New azithromycin 500 mg PO DAILY 3 tabs 0RF 3 days R05.2 - Subacute cough benzonatate 200 mg (2 x 100 mg) PO BID 60 caps 0RF R05.2 - Subacute cough Coding Level of Care Code Est Pt Level 4 (37817) Diagnoses Subacute cough R05.2 Cough type: subacute Time Spent (min) 20
== END 2025-09-15 08:35 | disposition home or self-care (01) ==
PROVIDERS: PCP Internal Medicine; Visit Provider Nurse Practitioner Family
DX: R05.2 Subacute cough (principal)

== ENCOUNTER → 2025-09-15 07:29 | Outpatient (BNVA) | payer MEDICARE, SELFPAY | PROVIDERS: PCP Internal Medicine; Visit Provider Nurse Practitioner Family | DX: R05.2 Subacute cough (principal) | CPT/HCPCS: 99212 ==

== ENCOUNTER 2025-09-23 08:20 | Outpatient (AMB) | payer MEDICARE, SELFPAY ==
--- NOTE | 2025-09-23 09:57 | MHC.PC.OV ---
Intake Visit Reasons: Stomach issues,referral(patient wants CALL not FT) Allergies No Known Allergies Allergy (Verified 09/15/25 07:33) Medication List - Last Reconciled 09/23/25 by Gemini Canas MD alcohol swabs (Alcohol Pads) 1 pad topical DAILY azithromycin 500 mg PO DAILY 3 days benzonatate 200 mg (2 x 100 mg) PO BID blood sugar diagnostic (Contour Plus Test Strip) check blood sugar once daily as directed blood-glucose meter (Contour Plus Blue Meter) Check blood sugar once daily as directed cholecalciferol (vitamin D3) 50 mcg PO DAILY 90 days glipizide 5 mg PO DAILY lancets (Accu-Chek Softclix Lancets) Check blood sugar once daily as directed lisinopril 20 mg PO DAILY lorazepam 1 mg PO DAILY PRN Magic Mouthwash Diphen/Lido/Antacid 1:1:1 5 mL PO Q6-8H sertraline 25 mg PO DAILY simvastatin 40 mg PO DAILY 90 days Tobacco use date assessed: 02/12/25 Dental Screening Dental Screen Date: 10/29/24 HPI Stomach issues,referral(patient wants CALL not FT) HPI Details History - The patient is a 64-year-old female with a history of diabetes, hypertension, hyperlipidemia, generalized anxiety disorder seeing psychiatrist, depression, osteoarthritis hands Patient has been having upper respiratory track symptoms since. September she was seen in walk-in clinic and was given three days of Z pack and benzonatate for cough. She is not feeling better. Her symptoms are same. They have worsen now she has sinus congestion and having coughing fits There is no fever chills, headache, but generalized soreness and weakness is there. There is no nausea vomiting, or diarrhea. Patient has not seen me since summer of this year, and is due for her regular follow up as well. She is due for labs or place to be done non-fasting She is diabetic diet control. Taking her medications. I'm treating her with Levaquin 500 mg a day for seven days codeine cough syrup for the night Patient was instructed to hydrate herself push fluids And return in couple of weeks for follow up appointment Medications: - Glipizide 5 mg for diabetes mellitus - Lisinopril 20 mg for hypertension - Lorazepam for anxiety - Sertraline 25 mg for depression - Simvastatin 40 mg for hyperlipidemia Problem List - Diabetes Mellitus Type 2 - Essential Hypertension - Hyperlipidemia - Anxiety - Depression Review of Systems - General: No fever no chills - Neurological: No headaches no dizziness - Ear nose throat: No sore throat no hearing difficulty no ear pain - Cardiovascular: No syncope, no chest pain, no palpitations - Gastrointestinal: No nausea vomiting or diarrhea - Endocrine: No polyuria polydipsia no heat intolerance - Genitourinary: No dysuria , no blood in urine PFSH Medical History High cholesterol Hypertension Surgical History History of hysterectomy History of section History of foot surgery Family History Father HTN (hypertension) Mother HTN (hypertension) Diabetes mellitus Depression Daughter HTN (hypertension) Son No problems noted. Sister No problems noted. Sister No problems noted. Sister No problems noted. Maternal Grandmother Unknown family medical history Maternal Grandfather Unknown family medical history Paternal Grandmother Unknown family medical history Other Substance use disorder Social History Housing: House Alcohol intake: current Alcohol intake frequency: a few times a week Patient Tobacco Use Status: Current someday Tobacco user Tobacco use type: Cigarette Cigarettes Per Day: 2 Years Smoked: 30 Packs per year/per ci.00 e-Cigarette/Vaping Use: Never Used service: No Current occupational status: employed Sexual orientation: Straight/Heterosexual Gender identity: Female Cognitive needs: No Hearing needs: No Vision needs: Yes Questionnaire Thrive Questionnaire Date Thrive assessed: 05/09/25 PAMELA-7 AMB Questionnaire PAMELA-7 Date PAMELA - 7 assessed: 05/09/25 Source: Developed by Drs. Gerald Butler, Viola Miles, Kain Funez and colleagues, with an educational martir from [employer]. Physical exam (Primary Care) Tobacco/Smoking Status: Tobacco use Status Tobacco use date assessed 02/12/25 09/23/25 10:00 Patient Tobacco Use Status Current someday Tobacco 09/23/25 10:00 Tobacco use type Cigarette 09/23/25 10:00 e-Cigarette/Vaping Use Never Used 09/23/25 10:00 Thrive Assessment: Date of Thrive Assessment Date Thrive assessed 05/09/25 09/23/25 10:00 Telehealth Telehealth Telehealth Platform: [employer] Location of provider rendering services: practice address Location of patient: address on file Patient Identification confirmed using: Name, : Yes Telehealth method: video Patient verbally consented to treatment: Yes Patient verbally consented to billing insurance company: Yes Patient informed of any privacy concerns related to visit: Yes Minutes spent on Phone/Video with Pt.: 13 Coding Level of Care Code Tele Est Pt Level 3 (41934) Diagnoses Bronchitis J40 Subacute maxillary sinusitis J01.00 Chronicity: subacute Sinusitis location: maxillary Hypertension, essential I10 Lipid disorder E78.9 Diabetes type 2, controlled E11.9 Anxiety, generalized F41.1 Mild episode of recurrent major depressive disorder F33.0 Active/Remission status: currently active Major depression episode severity: mild Assessment & Plan Assessment & Plan (1) Bronchitis: Code(s): J40 - Bronchitis, not specified as acute or chronic Category: Medical (2) Sinusitis: Code(s): J32.9 - Chronic sinusitis, unspecified Category: Medical Qualifiers: Chronicity: subacute Sinusitis location: maxillary Qualified Code(s): J01.00 - Acute maxillary sinusitis, unspecified (3) Hypertension, essential: Code(s): I10 - Essential (primary) hypertension Category: Medical (4) Lipid disorder: Code(s): E78.9 - Disorder of lipoprotein metabolism, unspecified Category: Medical (5) Diabetes type 2, controlled: Code(s): E11.9 - Type 2 diabetes mellitus without complications Category: Medical (6) Anxiety, generalized: Code(s): F41.1 - Generalized anxiety disorder Category: Medical (7) Major depression, recurrent: Code(s): F33.9 - Major depressive disorder, recurrent, unspecified Category: Medical Qualifiers: Active/Remission status: currently active Major depression episode severity: mild Qualified Code(s): F33.0 - Major depressive disorder, recurrent, mild Plan - The patient is a 64-year-old female with a history of diabetes, hypertension, hyperlipidemia, generalized anxiety disorder seeing psychiatrist, depression, osteoarthritis hands Patient has been having upper respiratory track symptoms since. September she was seen in walk-in clinic and was given three days of Z pack and benzonatate for cough. She is not feeling better. Her symptoms are same. They have worsen now she has sinus congestion and having coughing fits There is no fever chills, headache, but generalized soreness and weakness is there. There is no nausea vomiting, or diarrhea. Patient has not seen me since summer of this year, and is due for her regular follow up as well. She is due for labs or place to be done non-fasting She is diabetic diet control. Taking her medications. I'm treating her with Levaquin 500 mg a day for seven days codeine cough syrup for the night Patient was instructed to hydrate herself push fluids And return in couple of weeks for follow up appointment Orders: Orders Hemoglobin A1c Today E11.9 - Type 2 diabetes mellitus without complications, E78.9 - Disorder of lipoprotein metabolism, unspecified, F33.0 - Major depressive disorder, recurrent, mild, F41.1 - Generalized anxiety disorder, I10 - Essential (primary) hypertension Complete Blood Count Auto Diff Today E11.9 - Type 2 diabetes mellitus without complications, E78.9 - Disorder of lipoprotein metabolism, unspecified, F33.0 - Major depressive disorder, recurrent, mild, F41.1 - Generalized anxiety disorder, I10 - Essential (primary) hypertension Comprehensive Met. Panel Today E11.9 - Type 2 diabetes mellitus without complications, E78.9 - Disorder of lipoprotein metabolism, unspecified, F33.0 - Major depressive disorder, recurrent, mild, F41.1 - Generalized anxiety disorder, I10 - Essential (primary) hypertension LDL Cholesterol Direct Today E11.9 - Type 2 diabetes mellitus without complications, E78.9 - Disorder of lipoprotein metabolism, unspecified, F33.0 - Major depressive disorder, recurrent, mild, F41.1 - Generalized anxiety disorder, I10 - Essential (primary) hypertension Microalbumin, Random (w Creat) Today E11.9 - Type 2 diabetes mellitus without complications, E78.9 - Disorder of lipoprotein metabolism, unspecified, F33.0 - Major depressive disorder, recurrent, mild, F41.1 - Generalized anxiety disorder, I10 - Essential (primary) hypertension Medications: New codeine-guaifenesin 10-200 mg/5 mL (Coditussin AC) 10 mL PO .qhs PRN 100 mL 0RF cough 10 days levofloxacin 500 mg PO DAILY 7 tabs 0RF 7 days
== END 2025-09-23 10:10 | disposition home or self-care (01) ==
LOC: HO.HMCC 08:21
PROVIDERS: PCP Internal Medicine; Visit Provider Internal Medicine
DX: E11.9 Type 2 diabetes mellitus without complications (principal); J40 Bronchitis, not specified as acute or chronic; J01.00 Acute maxillary sinusitis, unspecified; I10 Essential (primary) hypertension; E78.9 Disorder of lipoprotein metabolism, unspecified; F41.1 Generalized anxiety disorder; F33.0 Major depressive disorder, recurrent, mild